=== PATIENT | male | born 1960 | race African-American/Black ===

== ENCOUNTER 2017-05-13 16:02 | Inpatient (IN) | payer MEDICAID ==
[~2017-05-13] VITALS: Ht 180.3 cm; Wt 72.7 kg
[2017-05-13 16:34] LABS: EOSINOPHILS % 0.4 % (0.0-5.0); LYMPHOCYTES % 16.9 % (20.0-50.0); MEAN CORPUSCULAR HEMOGLOBIN 27.4 pg (28.0-32.0); MEAN CORPUSCULAR VOLUME 86.7 fL (80.0-94.0); MEAN PLATELET VOLUME 6.6 fl (7.4-10.4); MONOCYTES % 8.5 % (2.0-8.0); NEUTROPHILS % 73.2 % (40.0-76.0); PLATELET 470 x1000/uL (130-400); RED CELL DISTRIBUTION WIDTH 17.5 % (11.6-14.6)
[2017-05-13 16:39] LABS: CHLORIDE 110 mEq/L (98-107)
[2017-05-13 16:41] LABS: HEMATOCRIT. 18.2 % (42.0-52.0); HEMOGLOBIN. 5.8 g/dL (14.0-18.0)
[2017-05-13 16:42] LABS: INR 1.2; PROTHROMBIN TIME 12.9 sec (9.4-11.6)
[2017-05-13] MEDS ORDERED: SODIUM CHLORIDE 0.9% 1,000 ML IV ONE ×2 (18:15→19:45)
[2017-05-13] MEDS ORDERED: HYDROCODONE/ACETAMINOPHEN 5/325MG TABLET PO ONE (19:45)
[2017-05-13 23:40] VITALS: BP 86/60
[2017-05-14] VITALS (13 sets, daily range): BP systolic 72–141; BP diastolic 39–83
[2017-05-14] MEDS ORDERED: LACTULOSE 20G/30ML UDC PO PRN (01:00)
[2017-05-14] MEDS: CEFTRIAXONE 1 G PREMIX 50 ML IV SCH (05:15)
[2017-05-14] MEDS ORDERED: OMEPRAZOLE 20MG CAPSULE EXTENDED RELEASE PO SCH (07:10)
[2017-05-14 07:26] LABS: CHLORIDE 113 mEq/L (98-107)
[2017-05-14 08:15] LABS: BASOPHILS % 0.8 % (0.0-2.0); EOSINOPHILS % 1.6 % (0.0-5.0); HEMATOCRIT. 23.4 % (42.0-52.0); HEMOGLOBIN. 7.6 g/dL (14.0-18.0); LYMPHOCYTES % 25.1 % (20.0-50.0); MEAN CORPUSCULAR HEMOGLOBIN 29.7 pg (28.0-32.0); MEAN CORPUSCULAR VOLUME 92.2 fL (80.0-94.0); MEAN PLATELET VOLUME 6.9 fl (7.4-10.4); NEUTROPHILS % 61.5 % (40.0-76.0); PLATELET 343 x1000/uL (130-400); RED BLOOD CELL COUNT 2.54 mill/uL (4.7-6.1); RED CELL DISTRIBUTION WIDTH 16.2 % (11.6-14.6)
[2017-05-14] MEDS ORDERED: SODIUM BICARBONATE 4% (2.4MEQ) 5ML VIAL IV ONE (09:26)
[2017-05-14] MEDS ORDERED: LIDOCAINE HCL/PF 1% 10 MG/ML 30ML VIAL ONE (09:27)
[2017-05-14 10:04] LABS: AMMONIA 22 uMol/L (<32)
[2017-05-14] MEDS: FUROSEMIDE 40MG TABLET PO SCH (14:15)
[2017-05-14] MEDS ORDERED: ALBUMIN HUMAN 25GM/100ML (25%) IV PRN (15:30)
[2017-05-14] MEDS ORDERED: ALBUMIN HUMAN 25GM/100ML (25%) IV SCH (16:30)
[2017-05-14 17:33] LABS: HEMATOCRIT 18.3 % (42.0-52.0)
[2017-05-14] MEDS: PANTOPRAZOLE SODIUM 40 MG/VIAL IV SCH (19:15)
[2017-05-14 22:15] LABS: HEPATITIS B SURFACE ANTIGEN NEGATIVE
[2017-05-14 22:43] LABS: HEPATITIS B CORE AB IGM NEGATIVE
[2017-05-14 22:45] LABS: HEPATITIS A AB IGM NEGATIVE (NEGATIVE)
[2017-05-15] VITALS (16 sets, daily range): BP systolic 90–136; BP diastolic 33–66
[2017-05-15] MEDS: CEFTRIAXONE 1 G PREMIX 50 ML IV SCH (03:39)
[2017-05-15] MEDS: MORPHINE SULFATE 4 MG/ML CPJ (NOT FOR IM USE) IV PRN ×2 (03:59→18:00)
[2017-05-15 04:32] LABS: HEMATOCRIT 24.6 % (42.0-52.0); HEMOGLOBIN 8.4 g/dL (14.0-18.0); MEAN CORPUSCULAR HEMOGLOBIN 29.4 pg (28.0-32.0); MEAN CORPUSCULAR VOLUME 86.1 fL (80.0-94.0); PLATELET 208 x1000/uL (130-400); RED BLOOD CELL COUNT 2.86 mill/uL (4.7-6.1); RED CELL DISTRIBUTION WIDTH 15.8 % (11.6-14.6)
[2017-05-15] MEDS: PANTOPRAZOLE SODIUM 40 MG/VIAL IV SCH ×2 (06:17→17:59)
[2017-05-15] MEDS: FUROSEMIDE 40MG TABLET PO SCH ×2 (06:17→17:59)
[2017-05-15 10:56] LABS: KETONES URINE NEGATIVE (NEGATIVE); LEUKOCYTE ESTERASE URINE NEGATIVE (NEGATIVE); NITRITE URINE NEGATIVE (NEGATIVE); OCCULT BLOOD URINE TRACE (NEGATIVE); PROTEIN URINE NEGATIVE (NEGATIVE); SPECIFIC GRAVITY URINE 1.007 (1.005-1.030); UROBILINOGEN URINE 0.2 E.U./dL (0.2-1.0)
[2017-05-15 11:15] LABS: *BARBITURATES SCREEN URINE NEGATIVE (NEGATIVE); *BENZODIAZEPINES SCREEN URINE NEGATIVE (NEGATIVE); METHADONE URINE SCREEN NEGATIVE (NEGATIVE); OPIATES URINE SCREEN PRESUMTIVE POSITIVE (NEGATIVE); PHENCYCLIDINE URINE SCREEN NEGATIVE (NEGATIVE)
[2017-05-15 11:16] LABS: *AMPHETAMINES SCREEN URINE NEGATIVE (NEGATIVE); *COCAINE SCREEN URINE NEGATIVE (NEGATIVE); CANNABINOID URINE SCREEN NEGATIVE (NEGATIVE)
[2017-05-15 11:31] LABS: CLARITY URINE CLEAR (CLEAR); COLOR URINE PALE YELLOW (YELLOW)
[2017-05-15 16:02] LABS: HEMATOCRIT 27.4 % (42.0-52.0); HEMOGLOBIN 9.5 g/dL (14.0-18.0); MEAN CORPUSCULAR HEMOGLOBIN 29.6 pg (28.0-32.0); MEAN CORPUSCULAR VOLUME 85.7 fL (80.0-94.0); PLATELET 214 x1000/uL (130-400); RED CELL DISTRIBUTION WIDTH 15.3 % (11.6-14.6)
[2017-05-16] VITALS: BP 96/61
[2017-05-16 00:10] LABS: HEMATOCRIT 25.8 % (42.0-52.0); HEMOGLOBIN 8.8 g/dL (14.0-18.0); MEAN CORPUSCULAR HEMOGLOBIN 29.8 pg (28.0-32.0); MEAN CORPUSCULAR VOLUME 87.3 fL (80.0-94.0); PLATELET 196 x1000/uL (130-400); RED BLOOD CELL COUNT 2.95 mill/uL (4.7-6.1); RED CELL DISTRIBUTION WIDTH 15.5 % (11.6-14.6)
[2017-05-16 04:00] VITALS: BP 100/55
[2017-05-16] MEDS: CEFTRIAXONE 1 G PREMIX 50 ML IV SCH (04:01)
[2017-05-16] MEDS: FUROSEMIDE 40MG TABLET PO SCH ×2 (06:05→18:00)
[2017-05-16] MEDS: PANTOPRAZOLE SODIUM 40 MG/VIAL IV SCH ×2 (06:05→18:27)
[2017-05-16 06:55] LABS: BASOPHILS % 0.5 % (0.0-2.0); EOSINOPHILS % 2.5 % (0.0-5.0); HEMOGLOBIN. 8.9 g/dL (14.0-18.0); MEAN CORPUSCULAR HEMOGLOBIN 29.6 pg (28.0-32.0); MEAN CORPUSCULAR VOLUME 86.5 fL (80.0-94.0); MEAN PLATELET VOLUME 6.7 fl (7.4-10.4); MONOCYTES % 9.6 % (2.0-8.0); NEUTROPHILS % 78.4 % (40.0-76.0); PLATELET 198 x1000/uL (130-400); RED BLOOD CELL COUNT 3.01 mill/uL (4.7-6.1); RED CELL DISTRIBUTION WIDTH 15.7 % (11.6-14.6)
[2017-05-16 08:02] VITALS: BP 93/60
[2017-05-16] MEDS: ONDANSETRON HCL 4MG/2ML VIAL IV PRN ×2 (08:32→15:29)
[2017-05-16 12:09] VITALS: BP 83/50
[2017-05-16 15:59] VITALS: BP 89/52
[2017-05-16] MEDS ORDERED: SORBITOL 70% SOLN 30ML PO SCH ×2 (16:00→20:00)
[2017-05-16 20:00] VITALS: BP 82/42
[2017-05-16] MEDS: MORPHINE SULFATE 4 MG/ML CPJ (NOT FOR IM USE) IV PRN (21:07)
[2017-05-17] VITALS (7 sets, daily range): BP systolic 75–111; BP diastolic 32–71
[2017-05-17] MEDS: CEFTRIAXONE 1 G PREMIX 50 ML IV SCH (03:52)
[2017-05-17] MEDS: PANTOPRAZOLE SODIUM 40 MG/VIAL IV SCH ×2 (05:24→17:57)
[2017-05-17] MEDS: FUROSEMIDE 40MG TABLET PO SCH ×2 (05:28→17:56)
[2017-05-17 06:15] LABS: BASOPHILS % 0.5 % (0.0-2.0); EOSINOPHILS % 2.4 % (0.0-5.0); LYMPHOCYTES % 14.7 % (20.0-50.0); MEAN CORPUSCULAR HEMOGLOBIN 29.3 pg (28.0-32.0); MEAN CORPUSCULAR VOLUME 88.2 fL (80.0-94.0); MEAN PLATELET VOLUME 7.3 fl (7.4-10.4); MONOCYTES % 9.1 % (2.0-8.0); NEUTROPHILS % 73.3 % (40.0-76.0); PLATELET 236 x1000/uL (130-400); RED BLOOD CELL COUNT 2.72 mill/uL (4.7-6.1); RED CELL DISTRIBUTION WIDTH 15.4 % (11.6-14.6)
[2017-05-17] MEDS ORDERED: SORBITOL 70% SOLN 30ML PO SCH (07:00)
[2017-05-17] MEDS ORDERED: MIDAZOLAM HCL 5 MG/5 ML VIAL IV PRN (14:15)
[2017-05-17] MEDS ORDERED: FENTANYL CITRATE/PF 50MCG/ML 2ML VIAL ONE (14:20)
[2017-05-17] MEDS ORDERED: MIDAZOLAM HCL 5 MG/5 ML VIAL ONE (14:20)
[2017-05-17] MEDS ORDERED: SODIUM CHLORIDE 0.9% 10ML VIAL ONE (14:23)
[2017-05-17] MEDS ORDERED: POTASSIUM CHLORIDE INJ 40 MEQ in SODIUM CHLORIDE 0.9% 250 ML IV NR (16:30)
[2017-05-17] MEDS ORDERED: IOHEXOL-300 100 ML BOTTLE ONE (17:12)
[2017-05-18] VITALS (10 sets, daily range): BP systolic 82–109; BP diastolic 39–65
[2017-05-18] MEDS: CEFTRIAXONE 1 G PREMIX 50 ML IV SCH (02:16)
[2017-05-18] MEDS: PANTOPRAZOLE SODIUM 40 MG/VIAL IV SCH ×2 (05:40→17:59)
[2017-05-18] MEDS: FUROSEMIDE 40MG TABLET PO SCH ×2 (05:40→17:59)
[2017-05-18] MEDS: MORPHINE SULFATE 4 MG/ML CPJ (NOT FOR IM USE) IV PRN (06:22)
[2017-05-18 07:15] LABS: BASOPHILS % 0.6 % (0.0-2.0); EOSINOPHILS % 3.8 % (0.0-5.0); LYMPHOCYTES % 11.1 % (20.0-50.0); MEAN CORPUSCULAR HEMOGLOBIN 30.1 pg (28.0-32.0); MEAN CORPUSCULAR VOLUME 87.9 fL (80.0-94.0); MEAN PLATELET VOLUME 7.2 fl (7.4-10.4); MONOCYTES % 9.1 % (2.0-8.0); NEUTROPHILS % 75.4 % (40.0-76.0); PLATELET 184 x1000/uL (130-400); RED BLOOD CELL COUNT 2.09 mill/uL (4.7-6.1); RED CELL DISTRIBUTION WIDTH 15.7 % (11.6-14.6)
[2017-05-18 08:14] LABS: HEMATOCRIT. 18.3 % (42.0-52.0); HEMOGLOBIN. 6.3 g/dL (14.0-18.0)
[2017-05-18 20:45] LABS: HEMATOCRIT 19.2 % (42.0-52.0); HEMOGLOBIN 6.4 g/dL (14.0-18.0)
[2017-05-19] VITALS (11 sets, daily range): BP systolic 84–122; BP diastolic 41–72
[2017-05-19] MEDS: HYDROCODONE/ACETAMINOPHEN 5/325MG TABLET PO PRN (05:49)
[2017-05-19] MEDS: PANTOPRAZOLE SODIUM 40 MG/VIAL IV SCH ×2 (06:10→17:07)
[2017-05-19] MEDS: FUROSEMIDE 40MG TABLET PO SCH ×2 (06:10→17:07)
[2017-05-19 07:32] LABS: BASOPHILS % 0.7 % (0.0-2.0); EOSINOPHILS % 3.4 % (0.0-5.0); HEMATOCRIT. 27.6 % (42.0-52.0); LYMPHOCYTES % 9.5 % (20.0-50.0); MEAN CORPUSCULAR HEMOGLOBIN 29.7 pg (28.0-32.0); MEAN CORPUSCULAR VOLUME 85.8 fL (80.0-94.0); MEAN PLATELET VOLUME 7.2 fl (7.4-10.4); MONOCYTES % 12.4 % (2.0-8.0); PLATELET 154 x1000/uL (130-400); RED BLOOD CELL COUNT 3.22 mill/uL (4.7-6.1); RED CELL DISTRIBUTION WIDTH 15.5 % (11.6-14.6)
[2017-05-19 07:41] LABS: HEMOGLOBIN. 9.6 g/dL (14.0-18.0)
[2017-05-19] MEDS ORDERED: POTASSIUM CHLORIDE 20MEQ TABLET SR PO NR (08:36)
[2017-05-19 09:55] LABS: HEMATOCRIT 26.4 % (42.0-52.0)
[2017-05-19 09:58] LABS: HEMOGLOBIN 9.1 g/dL (14.0-18.0)
[2017-05-19] MEDS ORDERED: POTASSIUM CHLORIDE INJ 40 MEQ in SODIUM CHLORIDE 0.9% 250 ML IV NR (10:00)
[2017-05-19 10:09] LABS: INR 1.1; PROTHROMBIN TIME 11.4 sec (9.4-11.6)
[2017-05-19] MEDS ORDERED: VANCOMYCIN 1,500 MG in SODIUM CHLORIDE 0.9% 250 ML IV SCH (12:30)
[2017-05-19 14:19] LABS: PHOSPHORUS 4.2 mg/dL (2.5-4.9)
[2017-05-19 16:29] LABS: HEMATOCRIT 30.4 % (42.0-52.0); HEMOGLOBIN 10.6 g/dL (14.0-18.0)
[2017-05-19] MEDS: MORPHINE SULFATE 4 MG/ML CPJ (NOT FOR IM USE) IV PRN ×2 (18:02→22:10)
[2017-05-19] MEDS ORDERED: MAGNESIUM 2 G PREMIX 50 ML IV NR (21:00)
[2017-05-20] VITALS: BP 101/55
[2017-05-20 04:00] VITALS: BP 126/70
[2017-05-20] MEDS: FUROSEMIDE 40MG TABLET PO SCH ×2 (06:25→17:32)
[2017-05-20] MEDS: PANTOPRAZOLE SODIUM 40 MG/VIAL IV SCH ×2 (06:25→17:32)
[2017-05-20 06:53] LABS: BASOPHILS % 0.6 % (0.0-2.0); EOSINOPHILS % 3.7 % (0.0-5.0); HEMATOCRIT. 24.2 % (42.0-52.0); HEMOGLOBIN. 8.6 g/dL (14.0-18.0); LYMPHOCYTES % 10.5 % (20.0-50.0); MEAN CORPUSCULAR HEMOGLOBIN 30.3 pg (28.0-32.0); MEAN CORPUSCULAR VOLUME 85.9 fL (80.0-94.0); MEAN PLATELET VOLUME 7.3 fl (7.4-10.4); MONOCYTES % 12.6 % (2.0-8.0); NEUTROPHILS % 72.6 % (40.0-76.0); PLATELET 158 x1000/uL (130-400); RED BLOOD CELL COUNT 2.82 mill/uL (4.7-6.1); RED CELL DISTRIBUTION WIDTH 15.8 % (11.6-14.6)
[2017-05-20 08:00] VITALS: BP 122/67
[2017-05-20] MEDS ORDERED: POTASSIUM CHLORIDE 20MEQ TABLET SR PO SCH (08:30)
[2017-05-20] MEDS: HYDROCODONE/ACETAMINOPHEN 5/325MG TABLET PO PRN ×2 (09:57→21:43)
[2017-05-20] MEDS ORDERED: POTASSIUM CHLORIDE INJ 40 MEQ in SODIUM CHLORIDE 0.9% 250 ML IV SCH (10:00)
[2017-05-20 12:00] VITALS: BP 114/67
[2017-05-20] MEDS ORDERED: MAGNESIUM 2 G PREMIX 50 ML IV SCH (12:00)
[2017-05-20] MEDS ORDERED: POTASSIUM CHLORIDE 20MEQ TABLET SR PO NR (12:30)
[2017-05-20] MEDS ORDERED: MAGNESIUM 2 G PREMIX 50 ML IV ONE (12:30)
[2017-05-20 16:00] VITALS: BP 102/58
[2017-05-20 20:00] VITALS: BP 94/54
[2017-05-20 20:24] LABS: HEMATOCRIT 25.1 % (42.0-52.0); HEMOGLOBIN 8.6 g/dL (14.0-18.0)
[2017-05-21] VITALS (11 sets, daily range): BP systolic 92–106; BP diastolic 43–65
[2017-05-21 01:11] LABS: HEMATOCRIT 23.4 % (42.0-52.0); HEMOGLOBIN 8.2 g/dL (14.0-18.0)
[2017-05-21] MEDS: PANTOPRAZOLE SODIUM 40 MG/VIAL IV SCH ×2 (06:24→18:00)
[2017-05-21] MEDS: FUROSEMIDE 40MG TABLET PO SCH ×2 (06:24→18:00)
[2017-05-21] MEDS: HYDROCODONE/ACETAMINOPHEN 5/325MG TABLET PO PRN (06:47)
[2017-05-21] MEDS: POTASSIUM CHLORIDE 20MEQ TABLET SR PO SCH (08:11)
[2017-05-21 08:28] LABS: HEMATOCRIT 25.4 % (42.0-52.0); HEMOGLOBIN 8.8 g/dL (14.0-18.0)
[2017-05-21 08:30] LABS: BASOPHILS % 0.7 % (0.0-2.0); EOSINOPHILS % 4.1 % (0.0-5.0); HEMATOCRIT. 25.1 % (42.0-52.0); HEMOGLOBIN. 8.9 g/dL (14.0-18.0); LYMPHOCYTES % 10.5 % (20.0-50.0); MEAN CORPUSCULAR HEMOGLOBIN 30.1 pg (28.0-32.0); MEAN CORPUSCULAR VOLUME 85.1 fL (80.0-94.0); MEAN PLATELET VOLUME 7.2 fl (7.4-10.4); MONOCYTES % 14.7 % (2.0-8.0); PLATELET 177 x1000/uL (130-400); RED BLOOD CELL COUNT 2.95 mill/uL (4.7-6.1); RED CELL DISTRIBUTION WIDTH 15.8 % (11.6-14.6)
[2017-05-21] MEDS ORDERED: SODIUM BICARBONATE 4% (2.4MEQ) 5ML VIAL IV ONE (12:57)
[2017-05-21] MEDS ORDERED: LIDOCAINE HCL/PF 1% 10 MG/ML 5ML VIAL ONE (12:57)
[2017-05-21] MEDS ORDERED: VANCOMYCIN 1 G PREMIX 200 ML IV NR (14:00)
[2017-05-21] MEDS ORDERED: SIMETHICONE 40 MG/0.6 ML 30ML ONE (14:48)
[2017-05-21] MEDS ORDERED: SODIUM CHLORIDE 0.9% 10ML VIAL ONE (14:48)
[2017-05-21] MEDS ORDERED: MIDAZOLAM HCL 5 MG/5 ML VIAL IV PRN (16:35)
[2017-05-21] MEDS ORDERED: FENTANYL CITRATE/PF 50MCG/ML 2ML VIAL ONE (16:38)
[2017-05-21] MEDS ORDERED: MIDAZOLAM HCL 5 MG/5 ML VIAL ONE (16:38)
[2017-05-21] MEDS ORDERED: OMEPRAZOLE 20MG CAPSULE EXTENDED RELEASE PO NR (17:00)
[2017-05-21] MEDS ORDERED: PANTOPRAZOLE SODIUM 40 MG/VIAL IV SCH (21:00)
[2017-05-22] VITALS (9 sets, daily range): BP systolic 90–126; BP diastolic 36–65
[2017-05-22] MEDS: HYDROCODONE/ACETAMINOPHEN 5/325MG TABLET PO PRN ×2 (00:13→20:19)
[2017-05-22 00:14] LABS: HEMATOCRIT 23.6 % (42.0-52.0); HEMOGLOBIN 8.2 g/dL (14.0-18.0)
[2017-05-22] MEDS: PANTOPRAZOLE SODIUM 40 MG/VIAL IV SCH (06:06)
[2017-05-22] MEDS: FUROSEMIDE 40MG TABLET PO SCH ×2 (06:06→17:36)
[2017-05-22] MEDS: OMEPRAZOLE 20MG CAPSULE EXTENDED RELEASE PO SCH (06:11)
[2017-05-22 07:47] LABS: BASOPHILS % 0.6 % (0.0-2.0); EOSINOPHILS % 3.5 % (0.0-5.0); LYMPHOCYTES % 11.7 % (20.0-50.0); MEAN CORPUSCULAR HEMOGLOBIN 29.2 pg (28.0-32.0); MEAN CORPUSCULAR VOLUME 86.8 fL (80.0-94.0); MEAN PLATELET VOLUME 7.5 fl (7.4-10.4); MONOCYTES % 12.2 % (2.0-8.0); PLATELET 211 x1000/uL (130-400); RED CELL DISTRIBUTION WIDTH 16.3 % (11.6-14.6)
[2017-05-22] MEDS: POTASSIUM CHLORIDE 20MEQ TABLET SR PO SCH (08:12)
[2017-05-22 08:20] LABS: HEMATOCRIT. 20.8 % (42.0-52.0)
[2017-05-22 19:41] LABS: HEMATOCRIT 26.5 % (42.0-52.0)
[2017-05-22 23:37] LABS: HEMATOCRIT 24.8 % (42.0-52.0); HEMOGLOBIN 8.7 g/dL (14.0-18.0)
[2017-05-23] VITALS (11 sets, daily range): BP systolic 86–108; BP diastolic 41–64
[2017-05-23] MEDS: OMEPRAZOLE 20MG CAPSULE EXTENDED RELEASE PO SCH (06:18)
[2017-05-23] MEDS: FUROSEMIDE 40MG TABLET PO SCH ×2 (06:18→18:00)
[2017-05-23 07:18] LABS: HEMATOCRIT 24.6 % (42.0-52.0); HEMOGLOBIN 8.3 g/dL (14.0-18.0); MEAN CORPUSCULAR HEMOGLOBIN 29.7 pg (28.0-32.0); MEAN CORPUSCULAR VOLUME 87.8 fL (80.0-94.0); PLATELET 238 x1000/uL (130-400); RED CELL DISTRIBUTION WIDTH 16.7 % (11.6-14.6)
[2017-05-23] MEDS: POTASSIUM CHLORIDE 20MEQ TABLET SR PO SCH (08:23)
[2017-05-23] MEDS: HYDROCODONE/ACETAMINOPHEN 5/325MG TABLET PO PRN (08:24)
[2017-05-23 14:25] LABS: HEMATOCRIT 23.1 % (42.0-52.0); HEMOGLOBIN 7.8 g/dL (14.0-18.0)
[2017-05-24] VITALS: BP 98/62
[2017-05-24 01:18] LABS: HEMATOCRIT 27.2 % (42.0-52.0); HEMOGLOBIN 9.4 g/dL (14.0-18.0); MEAN CORPUSCULAR HEMOGLOBIN 30.4 pg (28.0-32.0); PLATELET 252 x1000/uL (130-400); RED BLOOD CELL COUNT 3.09 mill/uL (4.7-6.1)
[2017-05-24 01:22] LABS: PROTHROMBIN TIME 10.6 sec (9.4-11.6)
[2017-05-24 04:00] VITALS: BP 96/64
[2017-05-24 06:03] LABS: BASOPHILS % 0.6 % (0.0-2.0); EOSINOPHILS % 3.4 % (0.0-5.0); HEMATOCRIT. 26.2 % (42.0-52.0); HEMOGLOBIN. 8.9 g/dL (14.0-18.0); LYMPHOCYTES % 11.3 % (20.0-50.0); MEAN CORPUSCULAR HEMOGLOBIN 30.2 pg (28.0-32.0); MEAN CORPUSCULAR VOLUME 88.5 fL (80.0-94.0); MEAN PLATELET VOLUME 6.9 fl (7.4-10.4); MONOCYTES % 12.6 % (2.0-8.0); NEUTROPHILS % 72.1 % (40.0-76.0); PLATELET 249 x1000/uL (130-400); RED BLOOD CELL COUNT 2.97 mill/uL (4.7-6.1); RED CELL DISTRIBUTION WIDTH 16.5 % (11.6-14.6)
[2017-05-24] MEDS: OMEPRAZOLE 20MG CAPSULE EXTENDED RELEASE PO SCH (06:39)
[2017-05-24] MEDS: FUROSEMIDE 40MG TABLET PO SCH ×2 (06:39→18:14)
[2017-05-24 08:00] VITALS: BP 103/61
[2017-05-24] MEDS: POTASSIUM CHLORIDE 20MEQ TABLET SR PO SCH (11:16)
[2017-05-24] MEDS: HYDROCODONE/ACETAMINOPHEN 5/325MG TABLET PO PRN (11:27)
[2017-05-24 12:48] VITALS: BP 100/66
[2017-05-24] MEDS ORDERED: VANCOMYCIN 750 MG PREMIX 150 ML IV SCH (13:00)
[2017-05-24 16:56] VITALS: BP 97/52
[2017-05-24] MEDS ORDERED: SUCRALFATE 1 G/10 ML UDC PO SCH (17:10)
[2017-05-24 17:15] LABS: HEMATOCRIT 25.7 % (42.0-52.0); HEMOGLOBIN 8.7 g/dL (14.0-18.0)
[2017-05-24] MEDS: SUCRALFATE 1 G/10 ML UDC PO SCH (18:25)
[2017-05-24 20:00] VITALS: BP 94/52
[2017-05-24 20:30] LABS: HEMATOCRIT 29.3 % (42.0-52.0); HEMOGLOBIN 9.8 g/dL (14.0-18.0)
[2017-05-24] MEDS: PANTOPRAZOLE SODIUM 40 MG/VIAL IV SCH (22:25)
[2017-05-24 23:57] LABS: HEMATOCRIT 27.6 % (42.0-52.0); HEMOGLOBIN 9.5 g/dL (14.0-18.0)
[2017-05-25] VITALS (8 sets, daily range): BP systolic 92–153; BP diastolic 41–75
[2017-05-25] MEDS: SUCRALFATE 1 G/10 ML UDC PO SCH ×5 (00:51→23:52)
[2017-05-25 06:43] LABS: BASOPHILS % 0.6 % (0.0-2.0); EOSINOPHILS % 3.4 % (0.0-5.0); HEMATOCRIT. 25.1 % (42.0-52.0); HEMOGLOBIN. 8.4 g/dL (14.0-18.0); LYMPHOCYTES % 11.1 % (20.0-50.0); MEAN CORPUSCULAR HEMOGLOBIN 29.6 pg (28.0-32.0); MEAN CORPUSCULAR VOLUME 88.2 fL (80.0-94.0); MEAN PLATELET VOLUME 6.9 fl (7.4-10.4); MONOCYTES % 11.5 % (2.0-8.0); NEUTROPHILS % 73.4 % (40.0-76.0); PLATELET 273 x1000/uL (130-400); RED BLOOD CELL COUNT 2.85 mill/uL (4.7-6.1); RED CELL DISTRIBUTION WIDTH 16.1 % (11.6-14.6)
[2017-05-25 07:53] LABS: PHOSPHORUS 4.5 mg/dL (2.5-4.9)
[2017-05-25] MEDS: POTASSIUM CHLORIDE 20MEQ TABLET SR PO SCH (08:29)
[2017-05-25] MEDS: FUROSEMIDE 40MG TABLET PO SCH ×2 (08:29→18:00)
[2017-05-25] MEDS: PANTOPRAZOLE SODIUM 40 MG/VIAL IV SCH ×2 (08:32→22:42)
[2017-05-25] MEDS ORDERED: MAGNESIUM 2 G PREMIX 50 ML IV NR (11:30)
[2017-05-25 11:51] LABS: HEMATOCRIT 24.8 % (42.0-52.0); HEMOGLOBIN 8.4 g/dL (14.0-18.0)
[2017-05-25] MEDS: ONDANSETRON HCL 4MG/2ML VIAL IV PRN (18:31)
[2017-05-25 18:37] LABS: HEMATOCRIT 24.1 % (42.0-52.0); HEMOGLOBIN 7.9 g/dL (14.0-18.0)
[2017-05-25] MEDS: HYDROCODONE/ACETAMINOPHEN 5/325MG TABLET PO PRN (22:44)
[2017-05-25] MEDS: SODIUM CHLORIDE 0.9% 1,000 ML IV SCH (22:44)
[2017-05-26] VITALS (9 sets, daily range): BP systolic 90–99; BP diastolic 45–64
[2017-05-26] MEDS: FUROSEMIDE 40MG TABLET PO SCH ×2 (06:46→18:34)
[2017-05-26] MEDS: SUCRALFATE 1 G/10 ML UDC PO SCH ×3 (06:46→17:28)
[2017-05-26 07:10] LABS: HEMATOCRIT 26.1 % (42.0-52.0); HEMOGLOBIN 8.9 g/dL (14.0-18.0)
[2017-05-26] MEDS: HYDROCODONE/ACETAMINOPHEN 5/325MG TABLET PO PRN (09:12)
[2017-05-26] MEDS: PANTOPRAZOLE SODIUM 40 MG/VIAL IV SCH ×2 (09:18→20:25)
[2017-05-26] MEDS: POTASSIUM CHLORIDE 20MEQ TABLET SR PO SCH (09:18)
[2017-05-26 15:51] LABS: BASOPHILS % 0.7 % (0.0-2.0); EOSINOPHILS % 2.3 % (0.0-5.0); HEMATOCRIT. 24.4 % (42.0-52.0); HEMOGLOBIN. 8.4 g/dL (14.0-18.0); LYMPHOCYTES % 12.7 % (20.0-50.0); MEAN CORPUSCULAR HEMOGLOBIN 30.1 pg (28.0-32.0); MEAN CORPUSCULAR VOLUME 87.9 fL (80.0-94.0); MEAN PLATELET VOLUME 6.9 fl (7.4-10.4); MONOCYTES % 10.3 % (2.0-8.0); PLATELET 309 x1000/uL (130-400); RED BLOOD CELL COUNT 2.78 mill/uL (4.7-6.1); RED CELL DISTRIBUTION WIDTH 16.5 % (11.6-14.6)
[2017-05-26] MEDS: SODIUM CHLORIDE 0.9% 1,000 ML IV SCH (16:39)
[2017-05-26 23:35] LABS: HEMATOCRIT 23.8 % (42.0-52.0)
[2017-05-27] VITALS (10 sets, daily range): BP systolic 90–105; BP diastolic 30–66
[2017-05-27] MEDS: SUCRALFATE 1 G/10 ML UDC PO SCH ×4 (00:49→17:08)
[2017-05-27] MEDS: FUROSEMIDE 40MG TABLET PO SCH ×2 (05:16→17:09)
[2017-05-27] MEDS: SODIUM CHLORIDE 0.9% 1,000 ML IV SCH (05:16)
[2017-05-27 07:29] LABS: EOSINOPHILS % 3.7 % (0.0-5.0); LYMPHOCYTES % 10.2 % (20.0-50.0); MEAN CORPUSCULAR HEMOGLOBIN 29.6 pg (28.0-32.0); MEAN PLATELET VOLUME 6.9 fl (7.4-10.4); MONOCYTES % 12.4 % (2.0-8.0); NEUTROPHILS % 72.7 % (40.0-76.0); PLATELET 264 x1000/uL (130-400); RED BLOOD CELL COUNT 2.36 mill/uL (4.7-6.1); RED CELL DISTRIBUTION WIDTH 16.8 % (11.6-14.6)
[2017-05-27] MEDS: POTASSIUM CHLORIDE 20MEQ TABLET SR PO SCH (09:45)
[2017-05-27] MEDS: PANTOPRAZOLE SODIUM 40 MG/VIAL IV SCH ×2 (09:45→20:25)
[2017-05-27] MEDS ORDERED: VANCOMYCIN 1 G PREMIX 200 ML IV NR (14:00)
[2017-05-27 16:21] LABS: HEMATOCRIT 24.8 % (42.0-52.0); HEMOGLOBIN 8.6 g/dL (14.0-18.0); MEAN CORPUSCULAR HEMOGLOBIN 30.6 pg (28.0-32.0); MEAN CORPUSCULAR VOLUME 88.3 fL (80.0-94.0); PLATELET 263 x1000/uL (130-400); RED CELL DISTRIBUTION WIDTH 15.6 % (11.6-14.6)
[2017-05-27] MEDS: HYDROCODONE/ACETAMINOPHEN 5/325MG TABLET PO PRN (17:13)
[2017-05-28] VITALS (7 sets, daily range): BP systolic 90–119; BP diastolic 50–67
[2017-05-28] MEDS: SUCRALFATE 1 G/10 ML UDC PO SCH ×3 (00:11→12:57)
[2017-05-28] MEDS: FUROSEMIDE 40MG TABLET PO SCH (05:09)
[2017-05-28 07:12] LABS: BASOPHILS % 0.8 % (0.0-2.0); EOSINOPHILS % 3.9 % (0.0-5.0); HEMATOCRIT. 24.6 % (42.0-52.0); LYMPHOCYTES % 11.2 % (20.0-50.0); MEAN CORPUSCULAR VOLUME 88.1 fL (80.0-94.0); MEAN PLATELET VOLUME 6.8 fl (7.4-10.4); MONOCYTES % 10.8 % (2.0-8.0); NEUTROPHILS % 73.3 % (40.0-76.0); PLATELET 292 x1000/uL (130-400); RED CELL DISTRIBUTION WIDTH 15.8 % (11.6-14.6)
[2017-05-28 07:28] LABS: HEMOGLOBIN. 8.4 g/dL (14.0-18.0)
[2017-05-28 07:45] LABS: PREALBUMIN 10.7 mg/dL (20.0-40.0)
[2017-05-28] MEDS: PANTOPRAZOLE SODIUM 40 MG/VIAL IV SCH (08:46)
[2017-05-28] MEDS: HYDROCODONE/ACETAMINOPHEN 5/325MG TABLET PO PRN (13:06)
[2017-05-28] MEDS ORDERED: SODIUM BICARBONATE 4% (2.4MEQ) 5ML VIAL IV ONE (14:17)
[2017-05-28] MEDS ORDERED: LIDOCAINE HCL/PF 1% 10 MG/ML 5ML VIAL ONE (14:17)
[2017-05-28 17:12] LABS: PARTIAL THROMBOPLASTIN TIME 26.8 sec (23.4-31.0); PROTHROMBIN TIME 10.8 sec (9.4-11.6)
== END 2017-05-28 20:20 | DRG 720 ==
LOC: ER 16:11 → 8WST 17:37 → EDBEDREQ 17:40 → ENRESERV 19:40
PROVIDERS: ADMIT Internal Medicine; ATTEND Internal Medicine
PROC: 30233N1 Transfusion of Nonautologous Red Blood Cells into Peripheral Vein, Percutaneous Approach (ICD-10-PCS; 2017-05-13)
PROC: 0W9G3ZZ Drainage of Peritoneal Cavity, Percutaneous Approach (ICD-10-PCS; 2017-05-14)
PROC: 0DJD8ZZ Inspection of Lower Intestinal Tract, Via Natural or Artificial Opening Endoscopic (ICD-10-PCS; 2017-05-17)
PROC: 0DB78ZX Excision of Stomach, Pylorus, Via Natural or Artificial Opening Endoscopic, Diagnostic (ICD-10-PCS; 2017-05-21)
PROC: 0W9G3ZZ Drainage of Peritoneal Cavity, Percutaneous Approach (ICD-10-PCS; principal; 2017-05-21 17:00)
PROC: 0W9G3ZZ Drainage of Peritoneal Cavity, Percutaneous Approach (ICD-10-PCS; 2017-05-28)
DX: A41.9 Sepsis, unspecified organism (principal); R57.8 Other shock; K76.7 Hepatorenal syndrome; E43 Unspecified severe protein-calorie malnutrition; N17.9 Acute kidney failure, unspecified; E87.2 Acidosis; K76.6 Portal hypertension; K25.4 Chronic or unspecified gastric ulcer with hemorrhage; E83.42 Hypomagnesemia; E83.51 Hypocalcemia; K70.31 Alcoholic cirrhosis of liver with ascites; D64.9 Anemia, unspecified; L02.413 Cutaneous abscess of right upper limb; N18.9 Chronic kidney disease, unspecified; E87.6 Hypokalemia; N13.30 Unspecified hydronephrosis; R16.1 Splenomegaly, not elsewhere classified; K57.31 Diverticulosis of large intestine without perforation or abscess with bleeding; Z16.21 Resistance to vancomycin; K29.51 Unspecified chronic gastritis with bleeding; Z68.22 Body mass index [BMI] 22.0-22.9, adult
CPT/HCPCS: 36415; 36430; 49083; 71045; 73030; 73200; 76700; 76770; 78278; 78306; 80048; 80053; 80202; 80305; 81003; 82040; 82105; 82140; 82270; 83615; 83735; 84100; 84132; 84134; 84145; 85014; 85018; 85025; 85027; 85049; 85384; 85610; 85730; 86677; 86705; 86709; 86803; 86850; 86900; 86920; 87040; 87070; 87205; 87340; 87493; 88108; 88305; 88312; 88313; 89050; 93005; 93970; 96360; 96361; 97162; 97166; 97530; 97535; 99291; A4216; A6261; A9503; A9560; C9113; J0696; J2250; J2270; J2405; J3010; J3370; J3475; J3480; J3490; J7030; J7040; J7050; P9016; P9047; Q9967

== ENCOUNTER → 2017-07-03 | Day surgery (SDC) | payer MEDICAID ==
[~2017-07-03] MED LIST: LIDOCAINE HCL 1% 20ML VIAL (Pyxis) INJ ONE; SODIUM BICARBONATE 4% (2.4MEQ) 5ML VIAL IV ONE
== END | disposition home or self-care (01) ==
LOC: RAD 10:47
PROVIDERS: ATTEND Family Medicine Adult Medicine
DX: K70.31 Alcoholic cirrhosis of liver with ascites (principal); D64.9 Anemia, unspecified
CPT/HCPCS: 49083; J3490

== ENCOUNTER 2017-08-02 12:40 | Emergency (ER) | payer MEDICAID ==
[~2017-08-02] VITALS: Ht 177.8 cm; Wt 77.9 kg
[2017-08-02 14:03] LABS: BASOPHILS % 1.1 % (0.0-2.0); EOSINOPHILS % 3.7 % (0.0-5.0); HEMATOCRIT. 24.3 % (42.0-52.0); HEMOGLOBIN. 7.8 g/dL (14.0-18.0); LYMPHOCYTES % 14.2 % (20.0-50.0); MEAN CORPUSCULAR HEMOGLOBIN 22.8 pg (28.0-32.0); MEAN PLATELET VOLUME 5.7 fl (7.4-10.4); MONOCYTES % 13.8 % (2.0-8.0); NEUTROPHILS % 67.2 % (40.0-76.0); PLATELET 388 x1000/uL (130-400); RED BLOOD CELL COUNT 3.42 mill/uL (4.7-6.1); RED CELL DISTRIBUTION WIDTH 19.3 % (11.6-14.6)
[2017-08-02 14:09] LABS: CHLORIDE 103 mEq/L (98-107)
[2017-08-02 14:12] LABS: INR 1.1; PARTIAL THROMBOPLASTIN TIME 28.7 sec (23.4-31.0); PROTHROMBIN TIME 11.6 sec (9.4-11.6)
[2017-08-02] MEDS ORDERED: LIDOCAINE HCL/PF 1% 10 MG/ML 5ML VIAL ONE (15:01)
[2017-08-02] MEDS ORDERED: SODIUM BICARBONATE 4% (2.4MEQ) 5ML VIAL IV ONE (15:02)
[2017-08-02 20:34] VITALS: BP 119/73
== END 2017-08-02 20:37 | disposition home or self-care (01) ==
LOC: ER 13:23
DX: K70.31 Alcoholic cirrhosis of liver with ascites (principal); F10.20 Alcohol dependence, uncomplicated; Y90.9 Presence of alcohol in blood, level not specified; F12.90 Cannabis use, unspecified, uncomplicated; F17.210 Nicotine dependence, cigarettes, uncomplicated; S42.291K Other displaced fracture of upper end of right humerus, subsequent encounter for fracture with nonunion; W19.XXXD Unspecified fall, subsequent encounter
CPT/HCPCS: 36415; 49083; 73030; 80053; 83690; 85025; 85610; 85730; 99285; J3490; Z7610; A4565

== ENCOUNTER 2018-11-11 23:07 | Inpatient (IN) | payer MEDICAID ==
[~2018-11-11] VITALS: Ht 177.8 cm; Wt 105.2 kg
[2018-11-11] MEDS ORDERED: PIPERACILLIN/TAZ 3.375G PREMIX 50 ML IV ONE (23:15)
[2018-11-11] MEDS ORDERED: VANCOMYCIN 1 G PREMIX 200 ML IV ONE (23:15)
[2018-11-11] MEDS ORDERED: MORPHINE SULFATE 4 MG/ML CPJ (NOT FOR IM USE) IV STA (23:15)
[2018-11-11] MEDS ORDERED: SODIUM CHLORIDE 0.9% 1000ML BAG (SEPSIS BOLUS) IV ONE (23:15)
[2018-11-11] MEDS ORDERED: ONDANSETRON HCL 4MG/2ML INJ IV STA (23:15)
[2018-11-11] MEDS ORDERED: DIATR MEGLU/DIATRIZOATE SOLN 30ML ONE (23:53)
[2018-11-12] VITALS (76 sets, daily range): BP systolic 70–191; BP diastolic 23–129
[2018-11-12] MEDS ORDERED: VECURONIUM BROMIDE 10 MG/VIAL IV ONE ×2
[2018-11-12] MEDS ORDERED: ETOMIDATE 2MG/ML 10ML VIAL IV ONE ×2
[2018-11-12] MEDS ORDERED: MIDAZOLAM HCL 50 MG in DEXTROSE 5% WATER 40 ML IV ONE ×2
[2018-11-12] MEDS ORDERED: SODIUM CHLORIDE 0.9% 10ML VIAL ONE
[2018-11-12 00:01] LABS: HEMOGLOBIN. 10.6 g/dL (14.0-18.0); MEAN CORPUSCULAR HEMOGLOBIN 26.9 pg (28.0-32.0); MEAN CORPUSCULAR VOLUME 85.8 fL (80.0-94.0); MEAN PLATELET VOLUME 7.4 fl (7.4-10.4); PLATELET 445 x1000/uL (130-400); RED BLOOD CELL COUNT 3.96 mill/uL (4.7-6.1); RED CELL DISTRIBUTION WIDTH 20.3 % (11.6-14.6)
[2018-11-12 00:08] LABS: CHLORIDE 88 mEq/L (98-107)
[2018-11-12 00:10] LABS: INR 1.3; PROTHROMBIN TIME 13.2 sec (9.6-11.0)
[2018-11-12 00:14] LABS: ETHANOL BLOOD < 10 mg/dL
[2018-11-12 00:28] LABS: PARTIAL THROMBOPLASTIN TIME 37.7 sec (23.4-31.0)
[2018-11-12] MEDS ORDERED: SODIUM CHLORIDE 0.9% 1,000 ML IV ONE ×4 (01:02→01:22)
[2018-11-12] MEDS ORDERED: DEXT 5%/0.9% NACL 1,000 ML IV ONE (01:04)
[2018-11-12] MEDS ORDERED: DEXTROSE 50% WATER 50ML SYRINGE IV ONE (01:15)
[2018-11-12 01:18] LABS: BG BASE EXCESS -17.9 mmol/L (-2.0-2.0); BG CARBOXYHEMOGLOBIN 0.3 % (0.5-1.5); BG DEOXYHEMOGLOBIN 1.1 % (0.0-5.0); BG FRACTION INSPIRED OXYGEN 50; BG HCO3 ACT 10.8 mmol/L (22.0-26.0); BG METHEMOGLOBIN 0.5 % (0.0-1.5); BG OXYGEN SATURATION 98.9 % (92.0-98.5); BG OXYHEMOGLOBIN 98.1 % (94.0-97.0); BG PCO2 36.3 mmHg (35.0-45.0); BG PEEP (cmH2O) 0 cmH2O; BG PH 7.092 (7.350-7.450); BG PO2 196.1 mmHg (75.0-100.0); BG SAMPLE SITE LEFT RADIAL; BG TIDAL VOLUME(mL) 500 mL; BG TOTAL HEMOGLOBIN 10.6 g/dL (12.0-18.0); BG VENT MODE VENT - A/C; BG VENT RATE 16 set
[2018-11-12] MEDS ORDERED: SODIUM BICARBONATE 8.4% 1 MEQ/ML 50ML SYR IV ONE ×2 (01:45)
[2018-11-12] MEDS ORDERED: IOHEXOL-300 100 ML BOTTLE ONE (01:46)
[2018-11-12] MEDS: SODIUM BICARBONATE 150 MEQ in DEXTROSE 5% WATER 1,000 ML IV SCH ×3 (01:54→22:50)
[2018-11-12] MEDS ORDERED: ROCURONIUM BROMIDE 10MG/ML VIAL 5ML IV ONE (03:07)
[2018-11-12] MEDS ORDERED: ONDANSETRON HCL 4MG/2ML INJ IV PRN (03:15)
[2018-11-12] MEDS ORDERED: MORPHINE SULFATE 2 MG/ML CPJ (NOT FOR IM USE) IV PRN (03:15)
[2018-11-12 03:16] LABS: NUCLEATED RED BLOOD CELLS 2 /100 WBC
[2018-11-12 03:18] LABS: PLATELET ESTIMATE INCREASED
[2018-11-12] MEDS ORDERED: METHYLENE BLUE 50 MG/10 ML AMP IV ONE (03:42)
[2018-11-12 05:15] LABS: BG CARBOXYHEMOGLOBIN 0.3 % (0.5-1.5); BG DEOXYHEMOGLOBIN 1.5 % (0.0-5.0); BG FRACTION INSPIRED OXYGEN 50; BG HCO3 ACT 14.6 mmol/L (22.0-26.0); BG METHEMOGLOBIN 0.5 % (0.0-1.5); BG OXYGEN SATURATION 98.5 % (92.0-98.5); BG OXYHEMOGLOBIN 97.7 % (94.0-97.0); BG PCO2 52.1 mmHg (35.0-45.0); BG PH 7.065 (7.350-7.450); BG PO2 171.9 mmHg (75.0-100.0); BG SAMPLE SITE A-LINE; BG TIDAL VOLUME(mL) 500 mL; BG TOTAL HEMOGLOBIN 9.5 g/dL (12.0-18.0); BG VENT MODE VENT - A/C; BG VENT RATE 10 set
[2018-11-12] MEDS ORDERED: SODIUM BICARBONATE 8.4% 1 MEQ/ML 50ML SYR IV SCH (05:30)
[2018-11-12] MEDS ORDERED: FENTANYL CITRATE/PF 500 MCG in SODIUM CHLORIDE 0.9% 40 ML IV PRN (06:00)
[2018-11-12] MEDS ORDERED: DEXT 5%/0.45% NACL KCL 20MEQ/L 1,000 ML IV SCH (06:00)
[2018-11-12] MEDS: MIDAZOLAM HCL 50 MG in DEXTROSE 5% WATER 40 ML IV PRN (07:44)
[2018-11-12] MEDS ORDERED: DEXTROSE 50% WATER 50ML SYRINGE IV PRN (08:15)
[2018-11-12] MEDS: INSULIN LISPRO 100 UNITS/ML SUBCUT SCH ×3 (08:20→17:07)
[2018-11-12] MEDS ORDERED: SODIUM CHLORIDE 0.9% 1,000 ML IV SCH (08:38)
[2018-11-12] MEDS ORDERED: DIPHENHYDRAMINE 50MG/ML VIAL IV PRN (08:45)
[2018-11-12] MEDS ORDERED: ACETAMINOPHEN 650MG SUPP PR PRN (08:45)
[2018-11-12 08:54] LABS: BG BASE EXCESS -10.1 mmol/L (-2.0-2.0); BG CARBOXYHEMOGLOBIN 0.3 % (0.5-1.5); BG DEOXYHEMOGLOBIN 1.3 % (0.0-5.0); BG FRACTION INSPIRED OXYGEN 50; BG METHEMOGLOBIN 0.1 % (0.0-1.5); BG OXYGEN SATURATION 98.7 % (92.0-98.5); BG OXYHEMOGLOBIN 98.3 % (94.0-97.0); BG PCO2 42.9 mmHg (35.0-45.0); BG PH 7.217 (7.350-7.450); BG PO2 164.4 mmHg (75.0-100.0); BG SAMPLE SITE A-LINE; BG TIDAL VOLUME(mL) 500 mL; BG TOTAL HEMOGLOBIN 10.2 g/dL (12.0-18.0); BG VENT MODE VENT - A/C; BG VENT RATE 16 set
[2018-11-12 08:55] LABS: HEMATOCRIT 29.1 % (42.0-52.0); HEMOGLOBIN 9.5 g/dL (14.0-18.0); MEAN CORPUSCULAR HEMOGLOBIN 27.2 pg (28.0-32.0); MEAN CORPUSCULAR VOLUME 83.3 fL (80.0-94.0); PLATELET 264 x1000/uL (130-400); RED BLOOD CELL COUNT 3.49 mill/uL (4.7-6.1); RED CELL DISTRIBUTION WIDTH 20.2 % (11.6-14.6)
[2018-11-12 08:57] LABS: CHLORIDE 101 mEq/L (98-107)
[2018-11-12] MEDS ORDERED: ALBUMIN HUMAN 25GM/100ML (25%) IV NR (09:45)
[2018-11-12] MEDS: PANTOPRAZOLE SODIUM 40 MG/VIAL IV SCH (10:07)
[2018-11-12] MEDS: PIPERACILLIN/TAZOBACTAM 2.25 G in DEXTROSE 5% WATER 50 ML IV SCH ×2 (10:28→19:27)
[2018-11-12] MEDS: CALCIUM GLUCONATE 1,000 MG in DEXT 5% WATER 90 ML IV SCH ×2 (10:28→21:38)
[2018-11-12 10:36] LABS: PHOSPHORUS 6.2 mg/dL (2.5-4.9)
[2018-11-12] MEDS: NOREPINEPHRINE 4 MG in DEXT 5% WATER 246 ML IV PRN ×2 (11:06→15:50)
[2018-11-12] MEDS ORDERED: IPRATROPIUM/ALBUTEROL 0.5-3(2.5)MG/3ML NEB HHN PRN (11:15)
[2018-11-12] MEDS: BLOOD SUGAR DIAGNOSTIC STRIP TEST SCH ×2 (12:13→17:06)
[2018-11-12 13:10] LABS: BG BASE EXCESS -8.1 mmol/L (-2.0-2.0); BG CARBOXYHEMOGLOBIN 0.3 % (0.5-1.5); BG DEOXYHEMOGLOBIN 1.3 % (0.0-5.0); BG FRACTION INSPIRED OXYGEN 50; BG HCO3 ACT 19.6 mmol/L (22.0-26.0); BG METHEMOGLOBIN 0.5 % (0.0-1.5); BG OXYGEN SATURATION 98.7 % (92.0-98.5); BG OXYHEMOGLOBIN 97.9 % (94.0-97.0); BG PCO2 50.8 mmHg (35.0-45.0); BG PH 7.205 (7.350-7.450); BG PO2 158.2 mmHg (75.0-100.0); BG SAMPLE SITE A-LINE; BG TIDAL VOLUME(mL) 500 mL; BG TOTAL HEMOGLOBIN 9.8 g/dL (12.0-18.0); BG VENT MODE VENT - A/C; BG VENT RATE 16 set
[2018-11-12] MEDS ORDERED: PHENYLEPHRINE 20 MG in DEXT 5% WATER 248 ML IV PRN (13:30)
[2018-11-12] MEDS ORDERED: SODIUM BICARBONATE 8.4% 1 MEQ/ML 50ML SYR IV NR (13:30)
[2018-11-12 13:38] LABS: CLARITY URINE CLEAR (CLEAR); COLOR URINE YELLOW (YELLOW); KETONES URINE NEGATIVE (NEGATIVE); LEUKOCYTE ESTERASE URINE NEGATIVE (NEGATIVE); NITRITE URINE NEGATIVE (NEGATIVE); OCCULT BLOOD URINE 2+ (NEGATIVE); PROTEIN URINE 1+ (NEGATIVE); SPECIFIC GRAVITY URINE 1.014 (1.005-1.030); UROBILINOGEN URINE 0.2 E.U./dL (0.2-1.0)
[2018-11-12 14:32] LABS: SODIUM URINE RANDOM 87 mEq/L
[2018-11-12 14:37] LABS: *AMPHETAMINES SCREEN URINE NEGATIVE (NEGATIVE); *BARBITURATES SCREEN URINE NEGATIVE (NEGATIVE)
[2018-11-12 14:38] LABS: *BENZODIAZEPINES SCREEN URINE PRESUMTIVE POSITIVE (NEGATIVE); *COCAINE SCREEN URINE PRESUMTIVE POSITIVE (NEGATIVE); CANNABINOID URINE SCREEN PRESUMTIVE POSITIVE (NEGATIVE); METHADONE URINE SCREEN NEGATIVE (NEGATIVE); OPIATES URINE SCREEN PRESUMTIVE POSITIVE (NEGATIVE); PHENCYCLIDINE URINE SCREEN PRESUMTIVE POSITIVE (NEGATIVE)
[2018-11-12] MEDS ORDERED: VANCOMYCIN 1 G PREMIX 200 ML IV NR (15:00)
[2018-11-12 15:05] LABS: CREATINE KINASE MB FRACTION 5.2 ng/mL (0.5-3.6)
[2018-11-12] MEDS: IPRATROPIUM/ALBUTEROL 0.5-3(2.5)MG/3ML NEB HHN SCH ×3 (16:00→23:49)
[2018-11-12 23:54] LABS: CREATINE KINASE MB FRACTION 3.9 ng/mL (0.5-3.6)
[2018-11-13] VITALS (95 sets, daily range): BP systolic 66–247; BP diastolic 31–173
[2018-11-13] MEDS ORDERED: DEXTROSE 50% WATER 50ML SYRINGE IV SCH
[2018-11-13] MEDS: BLOOD SUGAR DIAGNOSTIC STRIP TEST SCH ×4 (00:32→18:16)
[2018-11-13] MEDS: SODIUM BICARBONATE 150 MEQ in DEXTROSE 5% WATER 1,000 ML IV SCH (00:39)
[2018-11-13] MEDS: PHENYLEPHRINE 80 MG in DEXT 5% WATER 500 ML IV PRN ×2 (00:48→01:49)
[2018-11-13] MEDS: NOREPINEPHRINE 4 MG in DEXT 5% WATER 246 ML IV PRN (01:53)
[2018-11-13] MEDS ORDERED: NOREPINEPHRINE 32 MG in DEXT 5% WATER 468 ML IV PRN (02:15)
[2018-11-13] MEDS: PIPERACILLIN/TAZOBACTAM 2.25 G in DEXTROSE 5% WATER 50 ML IV SCH ×3 (03:18→18:21)
[2018-11-13] MEDS: IPRATROPIUM/ALBUTEROL 0.5-3(2.5)MG/3ML NEB HHN SCH ×5 (04:10→20:14)
[2018-11-13] MEDS ORDERED: PHENYLEPHRINE 80 MG in DEXT 5% WATER 492 ML IV PRN (05:30)
[2018-11-13 05:44] LABS: HEMATOCRIT. 24.7 % (42.0-52.0); MEAN CORPUSCULAR HEMOGLOBIN 26.7 pg (28.0-32.0); MEAN PLATELET VOLUME 7.4 fl (7.4-10.4); PLATELET 231 x1000/uL (130-400); RED BLOOD CELL COUNT 3.02 mill/uL (4.7-6.1); RED CELL DISTRIBUTION WIDTH 20.2 % (11.6-14.6)
[2018-11-13 05:49] LABS: CHLORIDE 86 mEq/L (98-107)
[2018-11-13 05:58] LABS: PHOSPHORUS 4.9 mg/dL (2.5-4.9)
[2018-11-13] MEDS: INSULIN LISPRO 100 UNITS/ML SUBCUT SCH ×4 (06:00→17:09)
[2018-11-13 06:01] LABS: CREATINE KINASE 150 IU/L (39-308); HDL CHOLESTEROL 8 mg/dL (40-59)
[2018-11-13 06:09] LABS: LDL CHOLESTEROL 4 mg/dL (5-100)
[2018-11-13] MEDS ORDERED: ALBUMIN HUMAN 25GM/100ML (25%) IV NR (07:30)
[2018-11-13] MEDS ORDERED: CALCIUM GLUCONATE 100MG/ML 10ML VIAL IV NR (08:00)
[2018-11-13] MEDS: PHENYLEPHRINE 80 MG in SODIUM CHLORIDE 0.9% 492 ML IV PRN ×3 (08:10→21:43)
[2018-11-13] MEDS: NOREPINEPHRINE 32 MG in SODIUM CHLORIDE 0.9% 468 ML IV PRN (08:16)
[2018-11-13] MEDS: PANTOPRAZOLE SODIUM 40 MG/VIAL IV SCH (08:40)
[2018-11-13] MEDS: CALCIUM GLUCONATE 1,000 MG in DEXT 5% WATER 90 ML IV SCH ×2 (08:41→21:42)
[2018-11-13 08:50] LABS: BG BASE EXCESS -2.8 mmol/L (-2.0-2.0); BG CARBOXYHEMOGLOBIN 0.3 % (0.5-1.5); BG DEOXYHEMOGLOBIN 3.6 % (0.0-5.0); BG FRACTION INSPIRED OXYGEN 40; BG OXYGEN SATURATION 96.4 % (92.0-98.5); BG OXYHEMOGLOBIN 95.1 % (94.0-97.0); BG PCO2 32.3 mmHg (35.0-45.0); BG PH 7.431 (7.350-7.450); BG SAMPLE SITE A-LINE; BG VENT MODE VENT - A/C; BG VENT RATE 24 set
[2018-11-13] MEDS: DEXT 5%/0.9% NACL 1,000 ML IV SCH ×2 (09:23→19:05)
[2018-11-13] MEDS: MIDAZOLAM HCL 50 MG in DEXTROSE 5% WATER 40 ML IV PRN (10:00)
[2018-11-13 12:20] LABS: HEPATITIS B SURFACE ANTIGEN NEGATIVE
[2018-11-13 12:50] LABS: HEPATITIS A AB IGM NEGATIVE (NEGATIVE)
[2018-11-13 13:00] LABS: NUCLEATED RED BLOOD CELLS 1 /100 WBC; PLATELET ESTIMATE NORMAL
[2018-11-13] MEDS: DEXTROSE 50% WATER 50ML SYRINGE IV PRN (17:10)
[2018-11-14] VITALS (102 sets, daily range): BP systolic 88–205; BP diastolic 13–106
[2018-11-14] MEDS: IPRATROPIUM/ALBUTEROL 0.5-3(2.5)MG/3ML NEB HHN SCH ×6 (00:12→21:06)
[2018-11-14] MEDS: DEXTROSE 50% WATER 50ML SYRINGE IV PRN ×2 (00:46→11:47)
[2018-11-14] MEDS: BLOOD SUGAR DIAGNOSTIC STRIP TEST SCH ×4 (00:47→17:22)
[2018-11-14] MEDS: NOREPINEPHRINE 32 MG in SODIUM CHLORIDE 0.9% 468 ML IV PRN ×2 (02:04→17:21)
[2018-11-14] MEDS: PIPERACILLIN/TAZOBACTAM 2.25 G in DEXTROSE 5% WATER 50 ML IV SCH (02:29)
[2018-11-14] MEDS: MIDAZOLAM HCL 50 MG in DEXTROSE 5% WATER 40 ML IV PRN ×2 (03:59→15:24)
[2018-11-14 04:19] LABS: PHOSPHORUS 5.1 mg/dL (2.5-4.9)
[2018-11-14 04:22] LABS: HEMATOCRIT. 23.1 % (42.0-52.0); HEMOGLOBIN. 7.5 g/dL (14.0-18.0); MEAN CORPUSCULAR HEMOGLOBIN 26.3 pg (28.0-32.0); MEAN CORPUSCULAR VOLUME 81.3 fL (80.0-94.0); MEAN PLATELET VOLUME 7.3 fl (7.4-10.4); PLATELET 120 x1000/uL (130-400); RED BLOOD CELL COUNT 2.84 mill/uL (4.7-6.1); RED CELL DISTRIBUTION WIDTH 20.4 % (11.6-14.6)
[2018-11-14] MEDS: DEXT 5%/0.9% NACL 1,000 ML IV SCH ×2 (04:32→17:12)
[2018-11-14] MEDS: PHENYLEPHRINE 80 MG in SODIUM CHLORIDE 0.9% 492 ML IV PRN ×3 (04:33→19:45)
[2018-11-14] MEDS: INSULIN LISPRO 100 UNITS/ML SUBCUT SCH ×4 (06:00→17:22)
[2018-11-14 07:16] LABS: HIV SCREEN 4G Non Reactive (Non Reactive)
[2018-11-14] MEDS ORDERED: CALCIUM GLUCONATE 100MG/ML 10ML VIAL IV ONE (08:15)
[2018-11-14] MEDS ORDERED: ALBUMIN HUMAN 25GM/100ML (25%) IV NR (08:15)
[2018-11-14 08:24] LABS: BG BASE EXCESS -5.8 mmol/L (-2.0-2.0); BG CARBOXYHEMOGLOBIN 0.4 % (0.5-1.5); BG DEOXYHEMOGLOBIN 1.3 % (0.0-5.0); BG FRACTION INSPIRED OXYGEN 35; BG HCO3 ACT 17.7 mmol/L (22.0-26.0); BG METHEMOGLOBIN 0.2 % (0.0-1.5); BG OXYGEN SATURATION 98.7 % (92.0-98.5); BG OXYHEMOGLOBIN 98.1 % (94.0-97.0); BG PCO2 27.4 mmHg (35.0-45.0); BG PH 7.427 (7.350-7.450); BG PO2 131.7 mmHg (75.0-100.0); BG SAMPLE SITE A-LINE; BG TIDAL VOLUME(mL) 500 mL; BG TOTAL HEMOGLOBIN 8.3 g/dL (12.0-18.0); BG VENT MODE VENT - A/C; BG VENT RATE 24 set
[2018-11-14] MEDS ORDERED: CALCIUM GLUCONATE 1000 MG in DEXTROSE 5% WATER 100 ML IV NR (08:30)
[2018-11-14] MEDS: CALCIUM GLUCONATE 1,000 MG in DEXT 5% WATER 90 ML IV SCH ×2 (09:07→21:18)
[2018-11-14] MEDS: PANTOPRAZOLE SODIUM 40 MG/VIAL IV SCH (09:07)
[2018-11-14 11:15] LABS: PLATELET ESTIMATE NORMAL
[2018-11-14] MEDS: CEFEPIME 2,000 MG in DEXT 5% WATER 100 ML IV SCH (13:06)
[2018-11-14] MEDS ORDERED: VANCOMYCIN 1 G PREMIX 200 ML IV NR (14:00)
[2018-11-14] MEDS: METRONIDAZOLE 500 MG PREMIX 100 ML IV SCH ×2 (14:19→22:09)
[2018-11-14] MEDS: MICAFUNGIN 100 MG in SODIUM CHLORIDE 0.9% 100 ML IV SCH (19:00)
[2018-11-15] VITALS (100 sets, daily range): BP systolic 86–161; BP diastolic 36–130
[2018-11-15] MEDS: BLOOD SUGAR DIAGNOSTIC STRIP TEST SCH ×5 (00:32→23:57)
[2018-11-15] MEDS: IPRATROPIUM/ALBUTEROL 0.5-3(2.5)MG/3ML NEB HHN SCH ×6 (00:33→20:30)
[2018-11-15] MEDS: DEXTROSE 50% WATER 50ML SYRINGE IV PRN ×4 (00:36→18:00)
[2018-11-15] MEDS: MIDAZOLAM HCL 50 MG in DEXTROSE 5% WATER 40 ML IV PRN ×2 (04:22→16:42)
[2018-11-15 05:18] LABS: HEMATOCRIT. 31.6 % (42.0-52.0); HEMOGLOBIN. 10.2 g/dL (14.0-18.0); MEAN CORPUSCULAR VOLUME 83.4 fL (80.0-94.0); MEAN PLATELET VOLUME 7.4 fl (7.4-10.4); PLATELET 59 x1000/uL (130-400); RED BLOOD CELL COUNT 3.79 mill/uL (4.7-6.1); RED CELL DISTRIBUTION WIDTH 19.5 % (11.6-14.6)
[2018-11-15] MEDS: PHENYLEPHRINE 80 MG in SODIUM CHLORIDE 0.9% 492 ML IV PRN (05:24)
[2018-11-15 05:33] LABS: PHOSPHORUS 4.8 mg/dL (2.5-4.9)
[2018-11-15] MEDS: INSULIN LISPRO 100 UNITS/ML SUBCUT SCH ×4 (05:37→17:54)
[2018-11-15] MEDS: DEXT 5%/0.9% NACL 1,000 ML IV SCH (06:07)
[2018-11-15] MEDS: METRONIDAZOLE 500 MG PREMIX 100 ML IV SCH ×3 (06:07→21:59)
[2018-11-15 07:06] LABS: NUCLEATED RED BLOOD CELLS 1 /100 WBC; PLATELET ESTIMATE DECREASED
[2018-11-15] MEDS ORDERED: ALBUMIN HUMAN 25GM/100ML (25%) IV NR (08:45)
[2018-11-15 08:49] LABS: BG BASE EXCESS -10.3 mmol/L (-2.0-2.0); BG CARBOXYHEMOGLOBIN 0.2 % (0.5-1.5); BG DEOXYHEMOGLOBIN 2.9 % (0.0-5.0); BG FRACTION INSPIRED OXYGEN 30; BG HCO3 ACT 14.6 mmol/L (22.0-26.0); BG METHEMOGLOBIN 0.4 % (0.0-1.5); BG OXYGEN SATURATION 97.1 % (92.0-98.5); BG OXYHEMOGLOBIN 96.5 % (94.0-97.0); BG PCO2 29.1 mmHg (35.0-45.0); BG PH 7.319 (7.350-7.450); BG PO2 104.4 mmHg (75.0-100.0); BG SAMPLE SITE A-LINE; BG TIDAL VOLUME(mL) 500 mL; BG TOTAL HEMOGLOBIN 10.4 g/dL (12.0-18.0); BG VENT MODE VENT - A/C; BG VENT RATE 20 set
[2018-11-15] MEDS: PANTOPRAZOLE SODIUM 40 MG/VIAL IV SCH (09:00)
[2018-11-15] MEDS ORDERED: SODIUM BICARBONATE 8.4% 1 MEQ/ML 50ML SYR IV NR (09:00)
[2018-11-15] MEDS: NOREPINEPHRINE 32 MG in SODIUM CHLORIDE 0.9% 468 ML IV PRN (09:00)
[2018-11-15] MEDS: CALCIUM GLUCONATE 1,000 MG in DEXT 5% WATER 90 ML IV SCH ×2 (09:43→20:57)
[2018-11-15 10:38] LABS: BG BASE EXCESS -7.3 mmol/L (-2.0-2.0); BG CARBOXYHEMOGLOBIN 0.3 % (0.5-1.5); BG DEOXYHEMOGLOBIN 3.7 % (0.0-5.0); BG FRACTION INSPIRED OXYGEN 30; BG HCO3 ACT 17.2 mmol/L (22.0-26.0); BG METHEMOGLOBIN 0.3 % (0.0-1.5); BG OXYGEN SATURATION 96.3 % (92.0-98.5); BG OXYHEMOGLOBIN 95.7 % (94.0-97.0); BG PCO2 31.2 mmHg (35.0-45.0); BG PO2 86.6 mmHg (75.0-100.0); BG SAMPLE SITE A-LINE; BG TIDAL VOLUME(mL) 500 mL; BG TOTAL HEMOGLOBIN 9.7 g/dL (12.0-18.0); BG VENT MODE VENT - A/C; BG VENT RATE 20 set
[2018-11-15] MEDS: CEFEPIME 2,000 MG in DEXT 5% WATER 100 ML IV SCH (13:59)
[2018-11-15] MEDS: MICAFUNGIN 100 MG in SODIUM CHLORIDE 0.9% 100 ML IV SCH (18:00)
[2018-11-16] VITALS (97 sets, daily range): BP systolic 71–172; BP diastolic 34–96
[2018-11-16] MEDS: PHENYLEPHRINE 80 MG in SODIUM CHLORIDE 0.9% 492 ML IV PRN ×3 (00:47→22:25)
[2018-11-16] MEDS: IPRATROPIUM/ALBUTEROL 0.5-3(2.5)MG/3ML NEB HHN SCH ×6 (00:48→20:17)
[2018-11-16] MEDS: MIDAZOLAM HCL 50 MG in DEXTROSE 5% WATER 40 ML IV PRN (01:54)
[2018-11-16] MEDS: DEXT 5%/0.9% NACL 1,000 ML IV SCH (02:06)
[2018-11-16] MEDS: DEXTROSE 50% WATER 50ML SYRINGE IV PRN ×5 (05:51→20:11)
[2018-11-16] MEDS: METRONIDAZOLE 500 MG PREMIX 100 ML IV SCH ×3 (05:51→22:26)
[2018-11-16] MEDS: INSULIN LISPRO 100 UNITS/ML SUBCUT SCH ×4 (05:52→17:27)
[2018-11-16] MEDS: BLOOD SUGAR DIAGNOSTIC STRIP TEST SCH ×5 (05:52→22:23)
[2018-11-16 06:19] LABS: HEMATOCRIT. 29.3 % (42.0-52.0); HEMOGLOBIN. 9.8 g/dL (14.0-18.0); MEAN CORPUSCULAR HEMOGLOBIN 27.4 pg (28.0-32.0); MEAN PLATELET VOLUME 8.6 fl (7.4-10.4); RED BLOOD CELL COUNT 3.57 mill/uL (4.7-6.1); RED CELL DISTRIBUTION WIDTH 19.6 % (11.6-14.6)
[2018-11-16 06:51] LABS: PHOSPHORUS 4.6 mg/dL (2.5-4.9)
[2018-11-16 06:56] LABS: PLATELET 28 x1000/uL (130-400)
[2018-11-16 09:11] LABS: PLATELET ESTIMATE MARKEDLY DECREASED
[2018-11-16] MEDS: PANTOPRAZOLE SODIUM 40 MG/VIAL IV SCH (09:17)
[2018-11-16] MEDS: CALCIUM GLUCONATE 1,000 MG in DEXT 5% WATER 90 ML IV SCH ×2 (09:17→20:42)
[2018-11-16 09:27] LABS: BG BASE EXCESS -10.3 mmol/L (-2.0-2.0); BG CARBOXYHEMOGLOBIN 0.1 % (0.5-1.5); BG DEOXYHEMOGLOBIN 1.8 % (0.0-5.0); BG FRACTION INSPIRED OXYGEN 30; BG HCO3 ACT 14.5 mmol/L (22.0-26.0); BG METHEMOGLOBIN 0.4 % (0.0-1.5); BG OXYGEN SATURATION 98.2 % (92.0-98.5); BG OXYHEMOGLOBIN 97.7 % (94.0-97.0); BG PCO2 28.5 mmHg (35.0-45.0); BG PH 7.323 (7.350-7.450); BG PO2 134.1 mmHg (75.0-100.0); BG SAMPLE SITE A-LINE; BG TIDAL VOLUME(mL) 500 mL; BG TOTAL HEMOGLOBIN 10.3 g/dL (12.0-18.0); BG VENT MODE VENT - A/C; BG VENT RATE 20 set
[2018-11-16] MEDS ORDERED: SODIUM BICARBONATE 8.4% 1 MEQ/ML 50ML SYR IV SCH (09:45)
[2018-11-16] MEDS: CEFEPIME 2,000 MG in DEXT 5% WATER 100 ML IV SCH (13:30)
[2018-11-16] MEDS: MICAFUNGIN 100 MG in SODIUM CHLORIDE 0.9% 100 ML IV SCH (17:31)
[2018-11-16] MEDS ORDERED: SODIUM CHLORIDE 0.9% 500 ML IV ONE (18:45)
[2018-11-16] MEDS ORDERED: KCL 20MEQ/100ML PREMIX 100 ML IV NR (19:30)
[2018-11-16] MEDS: SODIUM BICARBONATE 100 MEQ in DEXT 5%/0.45% NACL 1000ML 1,000 ML IV SCH (20:41)
[2018-11-16] MEDS: NOREPINEPHRINE 32 MG in SODIUM CHLORIDE 0.9% 468 ML IV PRN (22:24)
[2018-11-17] VITALS (95 sets, daily range): BP systolic 81–171; BP diastolic 35–147
[2018-11-17] MEDS: IPRATROPIUM/ALBUTEROL 0.5-3(2.5)MG/3ML NEB HHN SCH ×6 (00:31→20:01)
[2018-11-17] MEDS: BLOOD SUGAR DIAGNOSTIC STRIP TEST SCH ×12 (00:36→22:52)
[2018-11-17 05:35] LABS: HEMATOCRIT. 28.9 % (42.0-52.0); HEMOGLOBIN. 9.8 g/dL (14.0-18.0); MEAN CORPUSCULAR HEMOGLOBIN 27.6 pg (28.0-32.0); MEAN CORPUSCULAR VOLUME 81.6 fL (80.0-94.0); MEAN PLATELET VOLUME 8.5 fl (7.4-10.4); RED BLOOD CELL COUNT 3.54 mill/uL (4.7-6.1); RED CELL DISTRIBUTION WIDTH 20.1 % (11.6-14.6)
[2018-11-17 05:55] LABS: PLATELET 23 x1000/uL (130-400)
[2018-11-17] MEDS: INSULIN LISPRO 100 UNITS/ML SUBCUT SCH ×4 (06:00→18:00)
[2018-11-17] MEDS: METRONIDAZOLE 500 MG PREMIX 100 ML IV SCH ×3 (06:10→22:52)
[2018-11-17] MEDS: SODIUM BICARBONATE 100 MEQ in DEXT 5%/0.45% NACL 1000ML 1,000 ML IV SCH (06:11)
[2018-11-17 06:15] LABS: CHLORIDE 109 mEq/L (98-107)
[2018-11-17 06:33] LABS: PHOSPHORUS 4.1 mg/dL (2.5-4.9)
[2018-11-17 07:53] LABS: BG BASE EXCESS -5.6 mmol/L (-2.0-2.0); BG CARBOXYHEMOGLOBIN 0.3 % (0.5-1.5); BG HCO3 ACT 19.2 mmol/L (22.0-26.0); BG METHEMOGLOBIN 0.1 % (0.0-1.5); BG OXYHEMOGLOBIN 97.6 % (94.0-97.0); BG PCO2 34.9 mmHg (35.0-45.0); BG PH 7.358 (7.350-7.450); BG PO2 126.1 mmHg (75.0-100.0); BG SAMPLE SITE A-LINE; BG TIDAL VOLUME(mL) 500 mL; BG TOTAL HEMOGLOBIN 10.3 g/dL (12.0-18.0); BG VENT MODE VENT - A/C; BG VENT RATE 20 set
[2018-11-17] MEDS: PANTOPRAZOLE SODIUM 40 MG/VIAL IV SCH (08:29)
[2018-11-17] MEDS: CALCIUM GLUCONATE 1,000 MG in DEXT 5% WATER 90 ML IV SCH ×2 (08:29→20:07)
[2018-11-17 09:28] LABS: PLATELET ESTIMATE MARKEDLY DECREASED
[2018-11-17] MEDS: THIAMINE HCL 100MG TABLET PO SCH (12:17)
[2018-11-17] MEDS: MULTIVITAMINS,THER W-MINERALS TABLET PO SCH (12:17)
[2018-11-17] MEDS: FOLIC ACID 1MG TABLET PO SCH (12:17)
[2018-11-17] MEDS: CEFEPIME 2,000 MG in DEXT 5% WATER 100 ML IV SCH (12:18)
[2018-11-17 13:08] LABS: T4 FREE 0.88 ng/dL (0.76-1.46)
[2018-11-17 16:56] LABS: VITAMIN B12 SERUM > 2000.0 pg/mL (211-911)
[2018-11-17] MEDS: MICAFUNGIN 100 MG in SODIUM CHLORIDE 0.9% 100 ML IV SCH (17:47)
[2018-11-17] MEDS: SODIUM BICARBONATE 150 MEQ in DEXTROSE 5% WATER 1,000 ML IV SCH (17:49)
[2018-11-17] MEDS ORDERED: KCL 20MEQ/100ML PREMIX 100 ML IV NR (20:00)
[2018-11-17] MEDS: DEXTROSE 50% WATER 50ML SYRINGE IV PRN ×2 (20:06→23:02)
[2018-11-17] MEDS ORDERED: NOREPINEPHRINE 16 MG in SODIUM CHLORIDE 0.9% 250 ML IV PRN (21:45)
[2018-11-18] VITALS (109 sets, daily range): BP systolic 62–185; BP diastolic 5–142
[2018-11-18] MEDS: BLOOD SUGAR DIAGNOSTIC STRIP TEST SCH ×11 (00:24→22:00)
[2018-11-18] MEDS: IPRATROPIUM/ALBUTEROL 0.5-3(2.5)MG/3ML NEB HHN SCH ×6 (00:27→20:41)
[2018-11-18] MEDS: ACETYLCYSTEINE 100MG/ML 10% VIAL 4ML INH SCH ×3 (00:50→16:11)
[2018-11-18] MEDS: NOREPINEPHRINE 16 MG in SODIUM CHLORIDE 0.9% 234 ML IV PRN (01:01)
[2018-11-18] MEDS: DEXTROSE 50% WATER 50ML SYRINGE IV PRN ×4 (01:49→20:49)
[2018-11-18] MEDS: PHENYLEPHRINE 80 MG in SODIUM CHLORIDE 0.9% 492 ML IV PRN (03:25)
[2018-11-18 04:33] LABS: BG BASE EXCESS -7.7 mmol/L (-2.0-2.0); BG CARBOXYHEMOGLOBIN 0.5 % (0.5-1.5); BG DEOXYHEMOGLOBIN 19.9 % (0.0-5.0); BG FRACTION INSPIRED OXYGEN 100; BG HCO3 ACT 16.2 mmol/L (22.0-26.0); BG METHEMOGLOBIN 0.4 % (0.0-1.5); BG OXYGEN SATURATION 79.9 % (92.0-98.5); BG OXYHEMOGLOBIN 79.2 % (94.0-97.0); BG PCO2 27.9 mmHg (35.0-45.0); BG PH 7.381 (7.350-7.450); BG PO2 47.4 mmHg (75.0-100.0); BG SAMPLE SITE RIGHT RADIAL; BG TIDAL VOLUME(mL) 500 mL; BG TOTAL HEMOGLOBIN 10.8 g/dL (12.0-18.0); BG VENT MODE VENT - A/C; BG VENT RATE 20 set
[2018-11-18 05:16] LABS: BG BASE EXCESS -4.7 mmol/L (-2.0-2.0); BG CARBOXYHEMOGLOBIN 0.1 % (0.5-1.5); BG DEOXYHEMOGLOBIN 0.6 % (0.0-5.0); BG FRACTION INSPIRED OXYGEN 100; BG HCO3 ACT 19.6 mmol/L (22.0-26.0); BG METHEMOGLOBIN 0.4 % (0.0-1.5); BG OXYGEN SATURATION 99.4 % (92.0-98.5); BG OXYHEMOGLOBIN 98.9 % (94.0-97.0); BG PCO2 33.4 mmHg (35.0-45.0); BG PH 7.386 (7.350-7.450); BG PO2 307.4 mmHg (75.0-100.0); BG SAMPLE SITE RIGHT RADIAL; BG TIDAL VOLUME(mL) 500 mL; BG TOTAL HEMOGLOBIN 10.9 g/dL (12.0-18.0); BG VENT MODE VENT - A/C; BG VENT RATE 20 set
[2018-11-18 05:35] LABS: BASOPHILS % 0.8 % (0.0-2.0); EOSINOPHILS % 2.1 % (0.0-5.0); HEMATOCRIT. 31.8 % (42.0-52.0); HEMOGLOBIN. 10.4 g/dL (14.0-18.0); LYMPHOCYTES % 7.4 % (20.0-50.0); MEAN CORPUSCULAR HEMOGLOBIN 27.4 pg (28.0-32.0); MEAN CORPUSCULAR VOLUME 83.6 fL (80.0-94.0); MEAN PLATELET VOLUME 8.6 fl (7.4-10.4); MONOCYTES % 6.7 % (2.0-8.0); RED BLOOD CELL COUNT 3.81 mill/uL (4.7-6.1); RED CELL DISTRIBUTION WIDTH 19.9 % (11.6-14.6)
[2018-11-18 05:39] LABS: CHLORIDE 108 mEq/L (98-107)
[2018-11-18] MEDS: METRONIDAZOLE 500 MG PREMIX 100 ML IV SCH ×3 (05:42→23:02)
[2018-11-18 05:51] LABS: PHOSPHORUS 3.7 mg/dL (2.5-4.9)
[2018-11-18] MEDS: INSULIN LISPRO 100 UNITS/ML SUBCUT SCH ×3 (06:00→12:00)
[2018-11-18] MEDS: MORPHINE SULFATE 2 MG/ML CPJ (NOT FOR IM USE) IV PRN ×2 (06:09→06:25)
[2018-11-18 06:17] LABS: PLATELET 26 x1000/uL (130-400)
[2018-11-18 09:18] LABS: BG BASE EXCESS -5.5 mmol/L (-2.0-2.0); BG CARBOXYHEMOGLOBIN 0.3 % (0.5-1.5); BG DEOXYHEMOGLOBIN 0.5 % (0.0-5.0); BG FRACTION INSPIRED OXYGEN 100; BG HCO3 ACT 19.5 mmol/L (22.0-26.0); BG METHEMOGLOBIN 0.1 % (0.0-1.5); BG OXYGEN SATURATION 99.5 % (92.0-98.5); BG OXYHEMOGLOBIN 99.1 % (94.0-97.0); BG PCO2 36.2 mmHg (35.0-45.0); BG PH 7.349 (7.350-7.450); BG PO2 353.7 mmHg (75.0-100.0); BG SAMPLE SITE RIGHT RADIAL; BG TIDAL VOLUME(mL) 500 mL; BG TOTAL HEMOGLOBIN 10.8 g/dL (12.0-18.0); BG VENT MODE VENT - A/C; BG VENT RATE 20 set
[2018-11-18] MEDS: THIAMINE HCL 100MG TABLET PO SCH (09:43)
[2018-11-18] MEDS: MULTIVITAMINS,THER W-MINERALS TABLET PO SCH (09:43)
[2018-11-18] MEDS: CALCIUM GLUCONATE 1,000 MG in DEXT 5% WATER 90 ML IV SCH ×2 (09:43→21:24)
[2018-11-18] MEDS: PANTOPRAZOLE SODIUM 40 MG/VIAL IV SCH (09:43)
[2018-11-18] MEDS: FOLIC ACID 1MG TABLET PO SCH (10:13)
[2018-11-18] MEDS ORDERED: ACETYLCYSTEINE 100MG/ML 10% VIAL 4ML INH SCH (12:00)
[2018-11-18] MEDS ORDERED: VANCOMYCIN 1 G PREMIX 200 ML IV NR (12:00)
[2018-11-18] MEDS ORDERED: ALBUMIN HUMAN 25GM/100ML (25%) IV SCH (12:15)
[2018-11-18] MEDS: SODIUM CHLORIDE 3% FOR INH 15ML VIAL NEB INH SCH ×2 (12:23→16:12)
[2018-11-18] MEDS: CEFEPIME 2,000 MG in DEXT 5% WATER 100 ML IV SCH (13:01)
[2018-11-18 13:06] LABS: *CREATININE RANDOM URINE 166.5 mg/dL (Not Estab.)
[2018-11-18] MEDS: MICAFUNGIN 100 MG in SODIUM CHLORIDE 0.9% 100 ML IV SCH (18:09)
[2018-11-18] MEDS: SODIUM BICARBONATE 150 MEQ in DEXTROSE 5% WATER 1,000 ML IV SCH (18:33)
[2018-11-19] VITALS (97 sets, daily range): BP systolic 78–213; BP diastolic 46–100
[2018-11-19] MEDS: DEXTROSE 50% WATER 50ML SYRINGE IV PRN ×5 (00:46→20:16)
[2018-11-19] MEDS: BLOOD SUGAR DIAGNOSTIC STRIP TEST SCH ×12 (00:48→22:33)
[2018-11-19] MEDS: IPRATROPIUM/ALBUTEROL 0.5-3(2.5)MG/3ML NEB HHN SCH ×6 (00:50→20:41)
[2018-11-19] MEDS: METRONIDAZOLE 500 MG PREMIX 100 ML IV SCH ×3 (05:06→22:35)
[2018-11-19 05:19] LABS: HEMATOCRIT. 28.9 % (42.0-52.0); HEMOGLOBIN. 9.5 g/dL (14.0-18.0); MEAN CORPUSCULAR HEMOGLOBIN 26.9 pg (28.0-32.0); MEAN CORPUSCULAR VOLUME 81.6 fL (80.0-94.0); MEAN PLATELET VOLUME 8.6 fl (7.4-10.4); RED BLOOD CELL COUNT 3.54 mill/uL (4.7-6.1); RED CELL DISTRIBUTION WIDTH 20.5 % (11.6-14.6)
[2018-11-19 05:32] LABS: CHLORIDE 105 mEq/L (98-107)
[2018-11-19 05:51] LABS: PHOSPHORUS 4.4 mg/dL (2.5-4.9)
[2018-11-19] MEDS: INSULIN LISPRO 100 UNITS/ML SUBCUT SCH ×4 (06:00→18:00)
[2018-11-19 06:04] LABS: PLATELET 25 x1000/uL (130-400)
[2018-11-19] MEDS: ACETYLCYSTEINE 100MG/ML 10% VIAL 4ML INH SCH ×2 (07:32→15:37)
[2018-11-19] MEDS: SODIUM BICARBONATE 150 MEQ in DEXTROSE 5% WATER 1,000 ML IV SCH ×3 (07:57→16:39)
[2018-11-19] MEDS: THIAMINE HCL 100MG TABLET PO SCH (09:00)
[2018-11-19] MEDS: MULTIVITAMINS,THER W-MINERALS TABLET PO SCH (09:00)
[2018-11-19] MEDS: FOLIC ACID 1MG TABLET PO SCH (09:00)
[2018-11-19 09:21] LABS: BG BASE EXCESS -3.7 mmol/L (-2.0-2.0); BG CARBOXYHEMOGLOBIN 0.3 % (0.5-1.5); BG DEOXYHEMOGLOBIN 1.4 % (0.0-5.0); BG HCO3 ACT 20.3 mmol/L (22.0-26.0); BG METHEMOGLOBIN 0.5 % (0.0-1.5); BG OXYGEN SATURATION 98.6 % (92.0-98.5); BG OXYHEMOGLOBIN 97.8 % (94.0-97.0); BG PCO2 33.1 mmHg (35.0-45.0); BG PH 7.406 (7.350-7.450); BG PO2 143.1 mmHg (75.0-100.0); BG SAMPLE SITE A-LINE; BG TIDAL VOLUME(mL) 500 mL; BG TOTAL HEMOGLOBIN 10.2 g/dL (12.0-18.0); BG VENT MODE VENT - A/C; BG VENT RATE 20 set
[2018-11-19] MEDS ORDERED: ALBUMIN HUMAN 25GM/100ML (25%) IV SCH (09:30)
[2018-11-19] MEDS: CALCIUM GLUCONATE 1,000 MG in DEXT 5% WATER 90 ML IV SCH ×2 (09:38→21:05)
[2018-11-19] MEDS: PANTOPRAZOLE SODIUM 40 MG/VIAL IV SCH (09:38)
[2018-11-19 11:20] LABS: PLATELET ESTIMATE MARKEDLY DECREASED
[2018-11-19] MEDS: NOREPINEPHRINE 16 MG in SODIUM CHLORIDE 0.9% 234 ML IV PRN (11:59)
[2018-11-19] MEDS: CEFEPIME 2,000 MG in DEXT 5% WATER 100 ML IV SCH (13:12)
[2018-11-19] MEDS: MICAFUNGIN 100 MG in SODIUM CHLORIDE 0.9% 100 ML IV SCH (18:25)
[2018-11-19] MEDS ORDERED: TOTAL PARENTERAL NUTRITION 1,000 ML IV SCH (21:00)
[2018-11-20] VITALS (99 sets, daily range): BP systolic 81–233; BP diastolic 44–85
[2018-11-20] MEDS: ACETYLCYSTEINE 100MG/ML 10% VIAL 4ML INH SCH ×3 (00:32→16:10)
[2018-11-20] MEDS: IPRATROPIUM/ALBUTEROL 0.5-3(2.5)MG/3ML NEB HHN SCH ×6 (00:33→19:54)
[2018-11-20] MEDS: BLOOD SUGAR DIAGNOSTIC STRIP TEST SCH ×12 (00:52→22:06)
[2018-11-20] MEDS: METRONIDAZOLE 500 MG PREMIX 100 ML IV SCH ×3 (05:48→22:06)
[2018-11-20] MEDS: INSULIN LISPRO 100 UNITS/ML SUBCUT SCH ×4 (06:00→18:00)
[2018-11-20 06:39] LABS: HEMATOCRIT. 27.6 % (42.0-52.0); MEAN CORPUSCULAR HEMOGLOBIN 26.6 pg (28.0-32.0); MEAN CORPUSCULAR VOLUME 81.4 fL (80.0-94.0); MEAN PLATELET VOLUME 8.4 fl (7.4-10.4); RED BLOOD CELL COUNT 3.39 mill/uL (4.7-6.1); RED CELL DISTRIBUTION WIDTH 20.6 % (11.6-14.6)
[2018-11-20 06:54] LABS: PHOSPHORUS 3.7 mg/dL (2.5-4.9)
[2018-11-20 06:58] LABS: PLATELET 29 x1000/uL (130-400)
[2018-11-20] MEDS: SODIUM CHLORIDE 3% FOR INH 15ML VIAL NEB INH SCH (07:46)
[2018-11-20 08:50] LABS: PLATELET ESTIMATE MARKEDLY DECREASED
[2018-11-20] MEDS: PANTOPRAZOLE SODIUM 40 MG/VIAL IV SCH (09:09)
[2018-11-20] MEDS: CALCIUM GLUCONATE 1,000 MG in DEXT 5% WATER 90 ML IV SCH ×2 (09:09→21:24)
[2018-11-20 09:13] LABS: BG BASE EXCESS -3.6 mmol/L (-2.0-2.0); BG CARBOXYHEMOGLOBIN 0.4 % (0.5-1.5); BG DEOXYHEMOGLOBIN 2.4 % (0.0-5.0); BG FRACTION INSPIRED OXYGEN 45; BG HCO3 ACT 19.9 mmol/L (22.0-26.0); BG METHEMOGLOBIN 0.4 % (0.0-1.5); BG OXYGEN SATURATION 97.6 % (92.0-98.5); BG OXYHEMOGLOBIN 96.8 % (94.0-97.0); BG PCO2 30.2 mmHg (35.0-45.0); BG PH 7.436 (7.350-7.450); BG PO2 107.7 mmHg (75.0-100.0); BG SAMPLE SITE A-LINE; BG TIDAL VOLUME(mL) 500 mL; BG TOTAL HEMOGLOBIN 9.9 g/dL (12.0-18.0); BG VENT MODE VENT - A/C; BG VENT RATE 20 set
[2018-11-20] MEDS ORDERED: ALBUMIN HUMAN 25GM/100ML (25%) IV SCH (10:30)
[2018-11-20] MEDS ORDERED: DIGOXIN 500MCG/2ML AMP IV SCH (10:30)
[2018-11-20] MEDS ORDERED: FUROSEMIDE 40MG/4ML VIAL IVP SCH (10:30)
[2018-11-20] MEDS: NOREPINEPHRINE 16 MG in SODIUM CHLORIDE 0.9% 234 ML IV PRN (12:17)
[2018-11-20] MEDS: CEFEPIME 2,000 MG in DEXT 5% WATER 100 ML IV SCH (12:48)
[2018-11-20] MEDS: MICAFUNGIN 100 MG in SODIUM CHLORIDE 0.9% 100 ML IV SCH (20:12)
[2018-11-20] MEDS ORDERED: TOTAL PARENTERAL NUTRITION 1,200 ML IV SCH (21:00)
[2018-11-21] VITALS (91 sets, daily range): BP systolic 89–133; BP diastolic 44–70
[2018-11-21] MEDS: IPRATROPIUM/ALBUTEROL 0.5-3(2.5)MG/3ML NEB HHN SCH ×6 (00:27→20:18)
[2018-11-21] MEDS: ACETYLCYSTEINE 100MG/ML 10% VIAL 4ML INH SCH ×3 (00:27→15:52)
[2018-11-21] MEDS: BLOOD SUGAR DIAGNOSTIC STRIP TEST SCH ×12 (00:32→21:53)
[2018-11-21] MEDS: METRONIDAZOLE 500 MG PREMIX 100 ML IV SCH ×3 (06:00→21:53)
[2018-11-21] MEDS: INSULIN LISPRO 100 UNITS/ML SUBCUT SCH ×4 (06:00→17:31)
[2018-11-21] MEDS: NOREPINEPHRINE 16 MG in SODIUM CHLORIDE 0.9% 234 ML IV PRN (06:01)
[2018-11-21 06:42] LABS: HEMATOCRIT. 26.2 % (42.0-52.0); HEMOGLOBIN. 8.5 g/dL (14.0-18.0); MEAN CORPUSCULAR HEMOGLOBIN 26.8 pg (28.0-32.0); MEAN CORPUSCULAR VOLUME 82.2 fL (80.0-94.0); RED BLOOD CELL COUNT 3.19 mill/uL (4.7-6.1); RED CELL DISTRIBUTION WIDTH 20.6 % (11.6-14.6)
[2018-11-21 07:07] LABS: PLATELET 43 x1000/uL (130-400)
[2018-11-21 07:56] LABS: BG BASE EXCESS -2.7 mmol/L (-2.0-2.0); BG CARBOXYHEMOGLOBIN 0.2 % (0.5-1.5); BG DEOXYHEMOGLOBIN 1.8 % (0.0-5.0); BG FRACTION INSPIRED OXYGEN 45; BG HCO3 ACT 20.7 mmol/L (22.0-26.0); BG METHEMOGLOBIN 0.5 % (0.0-1.5); BG OXYGEN SATURATION 98.2 % (92.0-98.5); BG OXYHEMOGLOBIN 97.5 % (94.0-97.0); BG PCO2 30.4 mmHg (35.0-45.0); BG PH 7.451 (7.350-7.450); BG SAMPLE SITE RIGHT RADIAL; BG TIDAL VOLUME(mL) 500 mL; BG TOTAL HEMOGLOBIN 9.1 g/dL (12.0-18.0); BG VENT MODE VENT - A/C; BG VENT RATE 20 set
[2018-11-21] MEDS ORDERED: ALBUMIN HUMAN 25GM/100ML (25%) IV NR (08:00)
[2018-11-21] MEDS ORDERED: FUROSEMIDE 40MG/4ML VIAL IVP NR (08:00)
[2018-11-21] MEDS ORDERED: TOTAL PARENTERAL NUTRITION 1,200 ML IV SCH (08:15)
[2018-11-21 08:36] LABS: PLATELET ESTIMATE MARKEDLY DECREASED
[2018-11-21] MEDS: CALCIUM GLUCONATE 1,000 MG in DEXT 5% WATER 90 ML IV SCH ×2 (09:00→20:11)
[2018-11-21] MEDS: PANTOPRAZOLE SODIUM 40 MG/VIAL IV SCH (09:11)
[2018-11-21] MEDS ORDERED: VANCOMYCIN 750 MG PREMIX 150 ML IV SCH (10:00)
[2018-11-21] MEDS: CEFEPIME 2,000 MG in DEXT 5% WATER 100 ML IV SCH (13:26)
[2018-11-21] MEDS: MICAFUNGIN 100 MG in SODIUM CHLORIDE 0.9% 100 ML IV SCH (17:44)
[2018-11-21] MEDS ORDERED: TOTAL PARENTERAL NUTRITION 1,700 ML IV SCH (21:00)
[2018-11-22] VITALS (48 sets, daily range): BP systolic 92–123; BP diastolic 48–73
[2018-11-22] MEDS: IPRATROPIUM/ALBUTEROL 0.5-3(2.5)MG/3ML NEB HHN SCH ×7 (00:29→23:58)
[2018-11-22] MEDS: ACETYLCYSTEINE 100MG/ML 10% VIAL 4ML INH SCH ×4 (00:30→23:58)
[2018-11-22] MEDS: BLOOD SUGAR DIAGNOSTIC STRIP TEST SCH ×7 (00:42→23:39)
[2018-11-22] MEDS: INSULIN LISPRO 100 UNITS/ML SUBCUT SCH ×5 (06:00→23:39)
[2018-11-22 07:27] LABS: BASOPHILS % 0.7 % (0.0-2.0); EOSINOPHILS % 1.6 % (0.0-5.0); HEMATOCRIT. 24.9 % (42.0-52.0); HEMOGLOBIN. 8.2 g/dL (14.0-18.0); LYMPHOCYTES % 7.1 % (20.0-50.0); MEAN CORPUSCULAR HEMOGLOBIN 26.9 pg (28.0-32.0); MEAN CORPUSCULAR VOLUME 81.3 fL (80.0-94.0); MEAN PLATELET VOLUME 9.6 fl (7.4-10.4); MONOCYTES % 7.1 % (2.0-8.0); NEUTROPHILS % 83.5 % (40.0-76.0); PLATELET 61 x1000/uL (130-400); RED BLOOD CELL COUNT 3.06 mill/uL (4.7-6.1); RED CELL DISTRIBUTION WIDTH 20.5 % (11.6-14.6)
[2018-11-22 07:56] LABS: BG BASE EXCESS -0.3 mmol/L (-2.0-2.0); BG CARBOXYHEMOGLOBIN 0.3 % (0.5-1.5); BG DEOXYHEMOGLOBIN 3.5 % (0.0-5.0); BG FRACTION INSPIRED OXYGEN 40; BG OXYGEN SATURATION 96.5 % (92.0-98.5); BG OXYHEMOGLOBIN 95.2 % (94.0-97.0); BG PCO2 32.3 mmHg (35.0-45.0); BG PH 7.471 (7.350-7.450); BG PO2 92.2 mmHg (75.0-100.0); BG SAMPLE SITE RIGHT RADIAL; BG TIDAL VOLUME(mL) 500 mL; BG TOTAL HEMOGLOBIN 8.9 g/dL (12.0-18.0); BG VENT MODE VENT - A/C; BG VENT RATE 16 set
[2018-11-22] MEDS ORDERED: DEXTROSE 5% WATER 1,000 ML IV SCH (08:15)
[2018-11-22] MEDS: CALCIUM GLUCONATE 1,000 MG in DEXT 5% WATER 90 ML IV SCH ×2 (08:21→20:13)
[2018-11-22] MEDS: PANTOPRAZOLE SODIUM 40 MG/VIAL IV SCH (08:21)
[2018-11-22 08:35] LABS: PHOSPHORUS 1.7 mg/dL (2.5-4.9)
[2018-11-22] MEDS: METRONIDAZOLE 500 MG PREMIX 100 ML IV SCH ×2 (11:43→18:05)
[2018-11-22] MEDS: MICAFUNGIN 100 MG in SODIUM CHLORIDE 0.9% 100 ML IV SCH (11:50)
[2018-11-22] MEDS ORDERED: SODIUM PHOS,M-BASIC-D-BASIC 15 MM in DEXT 5% WATER 245 ML IV NR (13:00)
[2018-11-22] MEDS: CEFEPIME 2,000 MG in DEXT 5% WATER 100 ML IV SCH (13:06)
[2018-11-22] MEDS ORDERED: TOTAL PARENTERAL NUTRITION 1,700 ML IV SCH (21:00)
[2018-11-23] VITALS (31 sets, daily range): BP systolic 89–119; BP diastolic 40–60
[2018-11-23] MEDS: METRONIDAZOLE 500 MG PREMIX 100 ML IV SCH ×3 (02:40→17:52)
[2018-11-23] MEDS: IPRATROPIUM/ALBUTEROL 0.5-3(2.5)MG/3ML NEB HHN SCH ×6 (04:17→23:58)
[2018-11-23] MEDS: INSULIN LISPRO 100 UNITS/ML SUBCUT SCH ×3 (05:49→17:53)
[2018-11-23 05:52] LABS: HEMATOCRIT. 24.2 % (42.0-52.0); HEMOGLOBIN. 8.1 g/dL (14.0-18.0); MEAN CORPUSCULAR HEMOGLOBIN 27.4 pg (28.0-32.0); MEAN PLATELET VOLUME 9.2 fl (7.4-10.4); PLATELET 85 x1000/uL (130-400); RED BLOOD CELL COUNT 2.94 mill/uL (4.7-6.1); RED CELL DISTRIBUTION WIDTH 20.7 % (11.6-14.6)
[2018-11-23 06:15] LABS: PHOSPHORUS 2.6 mg/dL (2.5-4.9)
[2018-11-23 08:04] LABS: PLATELET ESTIMATE DECREASED
[2018-11-23] MEDS: ACETYLCYSTEINE 100MG/ML 10% VIAL 4ML INH SCH (09:00)
[2018-11-23] MEDS: CALCIUM GLUCONATE 1,000 MG in DEXT 5% WATER 90 ML IV SCH ×2 (09:04→21:17)
[2018-11-23] MEDS: PANTOPRAZOLE SODIUM 40 MG/VIAL IV SCH (09:04)
[2018-11-23] MEDS: MICAFUNGIN 100 MG in SODIUM CHLORIDE 0.9% 100 ML IV SCH (10:36)
[2018-11-23] MEDS: BLOOD SUGAR DIAGNOSTIC STRIP TEST SCH ×2 (12:00→17:51)
[2018-11-23] MEDS: CEFEPIME 2,000 MG in DEXT 5% WATER 100 ML IV SCH (12:15)
[2018-11-23] MEDS: MORPHINE SULFATE 2 MG/ML CPJ (NOT FOR IM USE) IV PRN (14:39)
[2018-11-23 15:04] LABS: BG BASE EXCESS -3.6 mmol/L (-2.0-2.0); BG CARBOXYHEMOGLOBIN 0.6 % (0.5-1.5); BG DEOXYHEMOGLOBIN 1.5 % (0.0-5.0); BG FRACTION INSPIRED OXYGEN 40; BG HCO3 ACT 20.5 mmol/L (22.0-26.0); BG METHEMOGLOBIN 0.3 % (0.0-1.5); BG OXYGEN SATURATION 98.5 % (92.0-98.5); BG OXYHEMOGLOBIN 97.6 % (94.0-97.0); BG PCO2 32.6 mmHg (35.0-45.0); BG PH 7.416 (7.350-7.450); BG PO2 119.9 mmHg (75.0-100.0); BG SAMPLE SITE RIGHT RADIAL; BG TIDAL VOLUME(mL) 500 mL; BG TOTAL HEMOGLOBIN 8.1 g/dL (12.0-18.0); BG VENT MODE VENT - A/C; BG VENT RATE 16 set
[2018-11-23] MEDS ORDERED: TOTAL PARENTERAL NUTRITION 1,700 ML IV SCH (21:00)
[2018-11-24] VITALS (48 sets, daily range): BP systolic 83–113; BP diastolic 37–59
[2018-11-24] MEDS: METRONIDAZOLE 500 MG PREMIX 100 ML IV SCH ×3 (03:01→18:00)
[2018-11-24] MEDS: BLOOD SUGAR DIAGNOSTIC STRIP TEST SCH ×4 (06:48→17:56)
[2018-11-24] MEDS: INSULIN LISPRO 100 UNITS/ML SUBCUT SCH ×4 (06:50→17:59)
[2018-11-24 07:08] LABS: CHLORIDE 104 mEq/L (98-107)
[2018-11-24 07:11] LABS: HEMATOCRIT. 23.8 % (42.0-52.0); HEMOGLOBIN. 7.6 g/dL (14.0-18.0); MEAN CORPUSCULAR HEMOGLOBIN 26.9 pg (28.0-32.0); MEAN CORPUSCULAR VOLUME 83.6 fL (80.0-94.0); MEAN PLATELET VOLUME 9.2 fl (7.4-10.4); PLATELET 114 x1000/uL (130-400); RED BLOOD CELL COUNT 2.84 mill/uL (4.7-6.1); RED CELL DISTRIBUTION WIDTH 21.1 % (11.6-14.6)
[2018-11-24 08:05] LABS: PLATELET ESTIMATE SLIGHTLY DECREASED
[2018-11-24] MEDS: CALCIUM GLUCONATE 1,000 MG in DEXT 5% WATER 90 ML IV SCH (08:06)
[2018-11-24] MEDS: PANTOPRAZOLE SODIUM 40 MG/VIAL IV SCH (08:06)
[2018-11-24] MEDS: IPRATROPIUM/ALBUTEROL 0.5-3(2.5)MG/3ML NEB HHN SCH ×4 (08:39→21:20)
[2018-11-24] MEDS: MICAFUNGIN 100 MG in SODIUM CHLORIDE 0.9% 100 ML IV SCH (12:25)
[2018-11-24] MEDS: CEFEPIME 2,000 MG in DEXT 5% WATER 100 ML IV SCH (13:55)
[2018-11-24] MEDS: MORPHINE SULFATE 2 MG/ML CPJ (NOT FOR IM USE) IV PRN (14:52)
[2018-11-24] MEDS ORDERED: TOTAL PARENTERAL NUTRITION 1,700 ML IV SCH (21:00)
[2018-11-25] VITALS (39 sets, daily range): BP systolic 64–117; BP diastolic 34–78
[2018-11-25] MEDS: BLOOD SUGAR DIAGNOSTIC STRIP TEST SCH ×3 (00:35→12:00)
[2018-11-25] MEDS: INSULIN LISPRO 100 UNITS/ML SUBCUT SCH ×3 (00:35→12:00)
[2018-11-25] MEDS: IPRATROPIUM/ALBUTEROL 0.5-3(2.5)MG/3ML NEB HHN SCH ×4 (00:40→12:30)
[2018-11-25] MEDS: METRONIDAZOLE 500 MG PREMIX 100 ML IV SCH ×2 (03:17→11:01)
[2018-11-25 05:47] LABS: HEMATOCRIT. 22.8 % (42.0-52.0); HEMOGLOBIN. 7.4 g/dL (14.0-18.0); MEAN CORPUSCULAR HEMOGLOBIN 27.2 pg (28.0-32.0); MEAN CORPUSCULAR VOLUME 83.5 fL (80.0-94.0); MEAN PLATELET VOLUME 8.7 fl (7.4-10.4); RED BLOOD CELL COUNT 2.73 mill/uL (4.7-6.1); RED CELL DISTRIBUTION WIDTH 21.3 % (11.6-14.6)
[2018-11-25 06:00] LABS: CHLORIDE 102 mEq/L (98-107)
[2018-11-25 06:13] LABS: PHOSPHORUS 4.9 mg/dL (2.5-4.9)
[2018-11-25 07:47] LABS: PLATELET 152 x1000/uL (130-400)
[2018-11-25] MEDS: PANTOPRAZOLE SODIUM 40 MG/VIAL IV SCH (08:49)
[2018-11-25] MEDS ORDERED: CALCIUM GLUCONATE 1,000 MG in DEXT 5% WATER 90 ML IV SCH ×4 (09:00)
[2018-11-25] MEDS: MICAFUNGIN 100 MG in SODIUM CHLORIDE 0.9% 100 ML IV SCH (11:59)
[2018-11-25] MEDS ORDERED: TOTAL PARENTERAL NUTRITION 1,700 ML IV SCH ×2 (12:15→21:00)
[2018-11-25] MEDS ORDERED: DEXT 10% WATER 1,000 ML IV SCH (12:30)
[2018-11-25] MEDS: CEFEPIME 2,000 MG in DEXT 5% WATER 100 ML IV SCH (13:15)
[2018-11-25 13:42] LABS: BG BASE EXCESS -6.7 mmol/L (-2.0-2.0); BG CARBOXYHEMOGLOBIN 0.3 % (0.5-1.5); BG DEOXYHEMOGLOBIN 1.8 % (0.0-5.0); BG FRACTION INSPIRED OXYGEN 40; BG HCO3 ACT 16.2 mmol/L (22.0-26.0); BG METHEMOGLOBIN 0.7 % (0.0-1.5); BG OXYGEN SATURATION 98.2 % (92.0-98.5); BG OXYHEMOGLOBIN 97.2 % (94.0-97.0); BG PCO2 23.5 mmHg (35.0-45.0); BG PH 7.455 (7.350-7.450); BG PO2 129.3 mmHg (75.0-100.0); BG SAMPLE SITE RIGHT RADIAL; BG TIDAL VOLUME(mL) 500 mL; BG VENT MODE VENT - A/C; BG VENT RATE 16 set
[2018-11-25] MEDS ORDERED: MORPHINE SULFATE 250 MG in DEXT 5% WATER 240 ML IV PRN (15:00)
[2018-11-25] MEDS ORDERED: VANCOMYCIN 500 MG PREMIX 100 ML IV SCH (16:00)
== END 2018-11-25 19:15 | disposition expired | DRG 710 ==
LOC: ER 23:25 → EDBEDREQTM 11-12 00:30 → EDBEDREQDT 11-12 00:30 → EDBEDREQ 11-12 00:30 → EDBEDREQSVC 11-12 00:30 → CVICU 11-12 01:55 → EDBEDREQTM 11-12 02:00 → EDBEDREQ 11-12 02:00 → ENRESERV 11-12 03:06
PROVIDERS: ADMIT Internal Medicine; ATTEND Internal Medicine
PROC: 0W9G0ZZ Drainage of Peritoneal Cavity, Open Approach (ICD-10-PCS; principal; 2018-11-12)
PROC: 5A1955Z Respiratory Ventilation, Greater than 96 Consecutive Hours (ICD-10-PCS; 2018-11-12)
PROC: 02HV33Z Insertion of Infusion Device into Superior Vena Cava, Percutaneous Approach (ICD-10-PCS; 2018-11-12)
PROC: B548ZZA Ultrasonography of Superior Vena Cava, Guidance (ICD-10-PCS; 2018-11-12)
PROC: 0D9670Z Drainage of Stomach with Drainage Device, Via Natural or Artificial Opening (ICD-10-PCS; 2018-11-12)
PROC: 0BH17EZ Insertion of Endotracheal Airway into Trachea, Via Natural or Artificial Opening (ICD-10-PCS; 2018-11-12)
PROC: 30233N1 Transfusion of Nonautologous Red Blood Cells into Peripheral Vein, Percutaneous Approach (ICD-10-PCS; 2018-11-14)
PROC: 3E0336Z Introduction of Nutritional Substance into Peripheral Vein, Percutaneous Approach (ICD-10-PCS; 2018-11-19)
DX: A41.02 Sepsis due to Methicillin resistant Staphylococcus aureus (principal); J96.01 Acute respiratory failure with hypoxia; D65 Disseminated intravascular coagulation [defibrination syndrome]; N17.0 Acute kidney failure with tubular necrosis; E43 Unspecified severe protein-calorie malnutrition; R65.21 Severe sepsis with septic shock; E83.51 Hypocalcemia; M48.02 Spinal stenosis, cervical region; K65.2 Spontaneous bacterial peritonitis; G92 Toxic encephalopathy; E87.2 Acidosis; D50.9 Iron deficiency anemia, unspecified; Z66 Do not resuscitate; E87.1 Hypo-osmolality and hyponatremia; E16.2 Hypoglycemia, unspecified; F12.10 Cannabis abuse, uncomplicated; K70.31 Alcoholic cirrhosis of liver with ascites; D68.4 Acquired coagulation factor deficiency; E87.5 Hyperkalemia; F10.20 Alcohol dependence, uncomplicated; F14.129 Cocaine abuse with intoxication, unspecified; N18.9 Chronic kidney disease, unspecified; I12.9 Hypertensive chronic kidney disease with stage 1 through stage 4 chronic kidney disease, or unspecified chronic kidney disease; N39.0 Urinary tract infection, site not specified; N40.0 Benign prostatic hyperplasia without lower urinary tract symptoms; T17.990A Other foreign object in respiratory tract, part unspecified in causing asphyxiation, initial encounter; T36.8X5A Adverse effect of other systemic antibiotics, initial encounter; F11.10 Opioid abuse, uncomplicated; A41.59 Other Gram-negative sepsis; X58.XXXA Exposure to other specified factors, initial encounter; T40.905A Adverse effect of unspecified psychodysleptics [hallucinogens], initial encounter; Y92.89 Other specified places as the place of occurrence of the external cause; Y93.89 Activity, other specified; Y99.8 Other external cause status; Z78.1 Physical restraint status; Z68.33 Body mass index [BMI] 33.0-33.9, adult
CPT/HCPCS: 31500; 36415; 36600; 71045; 74018; 74176; 74177; 76700; 76937; 80048; 80061; 80076; 80202; 80305; 80320; 81003; 82043; 82140; 82248; 82330; 82375; 82550; 82553; 82570; 82607; 82746; 82805; 82962; 83036; 83605; 83735; 83880; 84100; 84134; 84145; 84300; 84439; 84443; 84481; 84484; 85027; 85362; 85384; 86705; 86709; 86803; 86850; 86900; 86920; 87070; 87075; 87077; 87106; 87186; 87340; 87389; 93005; 93306; 93970; 94002; 94003; 94640; 94667; 97161; 99291; C1725; C9113; J0610; J0692; J1160; J1815; J1940; J2248; J2250; J2270; J2370; J2405; J2543; J3370; J3480; J3490; J7030; J7040; J7042; J7050; J7060; J7070; J7608; J7620; P9016; P9047; Q9963; Q9967; Q9968; A4315; G0480